=== PATIENT | male | born 1965 | race Caucasian/White ===

== ENCOUNTER 2017-05-26 17:08 | Inpatient (IN) | payer OTHER ==
[2017-05-26 19:37] LABS: ABS Basophils 0.1 10^3/ul (0-0.2); ABS Eosinophils 0 10^3/ul (0-0.6); ABS Lymphocytes 1.1 10^3/ul (1.0-4.8); ABS Monocytes 0.3 10^3/ul (0-0.8); ABS Neutrophils 3.3 10^3/ul (1.5-7.7); ABS Nucleated RBC 0 10^3/ul; Eosinophil % 0 % (0-6); Hematocrit 46 % (42-52); Hemoglobin 16.2 g/dl (14.0-18.0); Lymphocyte % 22.8 % (25-47); Mean Corpuscular HGB Conc 35 g/dl (31-36); Mean Corpuscular Hemoglobin 30 pg (27-31); Mean Corpuscular Volume 87 fL (80-94); Mean Platelet Volume 8 um3 (7.4-10.4); Nucleated Red Blood Cells % 0.1; Platelet Count 126 10^3/ul (150-450); Red Blood Count 5.36 10^6/ul (4.0-5.4); Red Cell Distribution Width 15 % (10.5-15); White Blood Count 4.7 10^3/ul (3.5-10.8)
[2017-05-26 19:51] LABS: EGFR Non-African American 88.3 (>60)
[2017-05-26 19:55] LABS: INR 0.85 (0.77-1.02)
[2017-05-27] MEDS ORDERED: NS 0.9% 1000 ML* 2,000 ML IV ONE (00:12)
[2017-05-27] MEDS ORDERED: chlordiazePOXIDE CAP* 25 MG PO ONE (00:13)
[2017-05-27] MEDS ORDERED: LORazepam INJ* 2 MG/ML 1 ML VIAL IV PUSH ONE (03:31)
[2017-05-27] MEDS ORDERED: LORazepam INJ* 2 MG/ML 1 ML VIAL ONE (03:33)
[2017-05-27] MEDS ORDERED: Docusate CAP* 100 MG PO PRN (05:07)
[2017-05-27] MEDS ORDERED: Senna TAB PO PRN (05:07)
[2017-05-27] MEDS ORDERED: Ondansetron INJ* 2 MG/ML VIAL IV PRN (05:07)
[2017-05-27] MEDS ORDERED: Thiamine IV* 100 MG/ML 2 ML VIAL IM ONE (05:09)
[2017-05-27] MEDS ORDERED: Thiamine IV* 100 MG, Folic Acid IV* 1 MG, Multiple Vitamin IV ADULT* 10 ML in NS 0.9% 1... IV ONE (05:10)
[2017-05-27] MEDS: LORazepam TAB(*) 1 MG PO SCH ×5 (06:41→20:43)
--- NOTE | 2017-05-27 06:50 | ED ---
Deondre Sam Thomas, scribed for Rony Coelho on 05/26/17 at 2241 . Substance Abuse/Use - HPI Summary HPI Summary: The patient is a 51 year old male presenting to the emergency department after he stopped drinking prior to arrival. He has been drinking excessively for the last three weeks. He typically drinks a liter of scotch every day. He last consumed alcohol today at approximately 11:30. He has a history of alcoholism. He denies chest pain and shortness of breath. - History Of Current Complaint Chief Complaint: EDDetoxRequest Stated Complaint: DETOX-ALCOHOL Time Seen by Provider: 05/26/17 22:34 Hx Obtained From: Patient Onset/Duration of Drug/ETOH Abuse: Weeks - excessive drinking last three weeks Ingestion History: Type/Name Of Drug - alcohol Overdose Characteristics: Oral Timing Of Abuse: Daily Severity Currently: Moderate Associated Signs And Symptoms: Other: - Cessation of alcohol; NEGATIVE: CP, SOB - Allergies/Home Medications Allergies/Adverse Reactions: Allergies Allergy/AdvReac Type Severity Reaction Status Date / Time No Known Allergies Allergy Verified 05/26/17 17:27 PMH/Surg Hx/FS Hx/Imm Hx Sensory History: Denies: Hx Legally Blind Psychiatric History: Reports: Hx Anxiety, Hx Depression, Hx Substance Abuse - alcohol Infectious Disease History: No Infectious Disease History: Denies: Traveled Outside the [place] in Last 30 Days - Family History Known Family History: Positive: Other - Patient denies relevant FHx - Social History Alcohol Use: Daily Alcohol Amount: 1L of scotch per day Substance Use Type: Reports: None Smoking Status (MU): Never Smoked Tobacco Review of Systems Negative: Fever Negative: Chest Pain Negative: Shortness Of Breath Positive: Other - Cessation of alcohol use All Other Systems Reviewed And Are Negative: Yes Physical Exam - Summary Physical Exam Summary: Appearance: Well appearing, no pain distress Skin: warm, dry, reflects adequate perfusion Head/face: normal Eyes: EOMI, [place] ENT: normal Neck: supple, non-tender Respiratory: CTA, breath sounds present Cardiovascular: RRR, pulses symmetrical Abdomen: non-tender, soft Bowel: present Musculoskeletal: normal, strength/ROM intact Neuro: normal, sensory motor intact, A&Ox3 Triage Information Reviewed: Yes Vital Signs On Initial Exam: Initial Vitals Temp Pulse Resp BP Pulse Ox 98.9 F 93 16 149/84 97 05/26/17 17:27 05/26/17 17:27 05/26/17 17:27 05/26/17 17:27 05/26/17 17:27 Vital Signs Reviewed: Yes Diagnostics - Vital Signs Vital Signs Temp Pulse Resp BP Pulse Ox 05/26/17 19:30 99.2 F 93 20 157/77 05/26/17 17:27 98.9 F 93 16 149/84 97 - Laboratory Lab Results: Lab Results 05/26/17 05/26/17 05/26/17 Range/Units 19:28 19:28 19:28 WBC 4.7 (3.5-10.8) 10^3/ul RBC 5.36 (4.0-5.4) 10^6/ul Hgb 16.2 (14.0-18.0) g/dl Hct 46 (42-52) % MCV 87 (80-94) fL MCH 30 (27-31) pg MCHC 35 (31-36) g/dl RDW 15 (10.5-15) % Plt Count 126 L (150-450) 10^3/ul MPV 8 (7.4-10.4) um3 Neut % (Auto) 69.5 (38-83) % Lymph % (Auto) 22.8 L (25-47) % [place] % (Auto) 6.2 (1-9) % Eos % (Auto) 0 (0-6) % Baso % (Auto) 1.5 (0-2) % Absolute Neuts (auto) 3.3 (1.5-7.7) 10^3/ul Absolute Lymphs (auto) 1.1 (1.0-4.8) 10^3/ul Absolute Monos (auto) 0.3 (0-0.8) 10^3/ul Absolute Eos (auto) 0 (0-0.6) 10^3/ul Absolute Basos (auto) 0.1 (0-0.2) 10^3/ul Absolute Nucleated RBC 0 10^3/ul Nucleated RBC % 0.1 INR (Anticoag Therapy) 0.85 (0.77-1.02) APTT 25.0 L (26.0-36.3) seconds Sodium 132 L (133-145) mmol/L Potassium 3.9 (3.5-5.0) mmol/L Chloride 90 L (101-111) mmol/L Carbon Dioxide 22 (22-32) mmol/L Anion Gap 20 H (2-11) mmol/L BUN 21 (6-24) mg/dL Creatinine 0.90 (0.67-1.17) mg/dL Est GFR ( Amer) 113.5 (>60) Est GFR (Non-Af Amer) 88.3 (>60) BUN/Creatinine Ratio 23.3 H (8-20) Glucose 125 H (70-100) mg/dL Calcium 9.3 (8.6-10.3) mg/dL Magnesium 2.2 (1.9-2.7) mg/dL Total Bilirubin 1.10 H (0.2-1.0) mg/dL AST 327 H (13-39) U/L ALT 314 H (7-52) U/L Alkaline Phosphatase 55 (34-104) U/L Total Protein 8.1 (6.4-8.9) g/dL Albumin 4.7 (3.2-5.2) g/dL Globulin 3.4 (2-4) g/dL Albumin/Globulin Ratio 1.4 (1-3) Serum Alcohol 391 H (<10) mg/dL Result Diagrams: 05/26/17 19:28 05/26/17 19:28 Lab Statement: Any lab studies that have been ordered have been reviewed, and results considered in the medical decision making process. Course/Dx - Course Assessment/Plan: The patient is a 51 year old male presenting to the emergency department after he stopped drinking prior to arrival. He typically drinks one liter of scotch every day. In the ED course the patient was given Librium, Ativan, and IV fluids. Bloodwork was obtained. The patient is diagnosed with alcohol withdrawal pending DTs and alcohol intoxication. Dr. Avery will admit the patient. 30 minutes critical care time. - Diagnoses Provider Diagnoses: Alcohol withdrawal pending DTs, Alcohol intoxication - Physician Notifications Discussed Care Of Patient With: Fina Avery Time Discussed With Above Provider: 05:33 Instructed by Provider To: Admit As Inpatient - Critical Care Time Critical Care Time: 30-74 min - 30 minutes Discharge - Discharge Plan Condition: Fair Disposition: ADMITTED TO [facility] Discharge Disposition Comment: By Dr. Avery. Referrals: Hayden Bustillos MD [Primary Care Provider] - The documentation as recorded by the Deondre jones Thomas accurately reflects the service I personally performed and the decisions made by me, Rony Coelho.
[2017-05-27] MEDS: Multivitamins/Minerals TAB PO SCH (10:11)
[2017-05-27] MEDS: Folic Acid TAB* 1 MG PO SCH (10:11)
[2017-05-27] MEDS: Thiamine TAB* 100 MG TAB PO SCH (10:12)
--- NOTE | 2017-05-27 11:34 | HP ---
CC: Dr. Hayden Bustillos HISTORY AND PHYSICAL: DATE OF ADMISSION: 05/27/17 TIME OF EVALUATION: 0500. PRIMARY CARE PHYSICIAN: Hayden Bustillos MD. CHIEF COMPLAINT: Hallucinations and withdrawal symptoms. HISTORY OF PRESENT ILLNESS: This is a 51-year-old male with a past medical history of alcohol abuse, who resumed drinking in the past few weeks, drinking up to a liter of scotch per day, and comes in because he wants to get detox. The patient has been in the emergency room for 10 hours when he started to have withdrawal symptoms and was referred to the hospitalist service for his withdrawal symptoms. The patient states that he is very jittery, he is now hallucinating seeing people on the wall. No diarrhea, no chest pain, no shortness of breath, no nausea, vomiting currently. He was vomiting earlier. He does have some epigastric pain and back pain. No fever. No URI symptoms. The patient has been drinking alcohol off and on since he was a teenager. He resumed for the past few weeks due to increase in stress and is now interested in rehab. Otherwise, remaining review of systems is negative. In the emergency room, the patient had labs. He was given 2 L of IV fluids, 1 mg of Ativan, 50 mg of Librium, and was referred to the hospitalist service. PAST MEDICAL HISTORY: History of alcohol abuse, history of rehab. MEDICATIONS: None. ALLERGIES: No known drug allergies. FAMILY HISTORY: His mother's side has several family members with alcohol abuse. SOCIAL HISTORY: The patient lives at home with his , Olga, who is his healthcare proxy and several extended family members including children and grandchildren. No history of drugs or smoking, and as mentioned, heavy alcohol use history. REVIEW OF SYSTEMS: A 14-point review of systems as mentioned in the HPI; otherwise, negative. PHYSICAL EXAMINATION GENERAL: Mildly jittery, in no acute distress, with the son-in-law at the bedside. VITAL SIGNS: Temp 99.2, pulse rate 116, respiratory rate 19, oxygen saturation 92% on room air, blood pressure 111/96. HEENT: Head normocephalic. Pupils are dilated and reactive. Conjunctivae are injected bilaterally. Oropharynx: Mucous membranes moist. NECK: Supple. No lymphadenopathy. RESPIRATORY: Diminished breath sounds. No wheezing, rhonchi, or rales. CARDIAC: Tachycardic, soft systolic murmur heard throughout. ABDOMEN: Soft, nontender, nondistended. EXTREMITIES: No clubbing, cyanosis, or edema. NEUROLOGIC: Alert and oriented x3. No focal neurologic deficits. The patient with jitteriness. DIAGNOSTIC STUDIES/LAB DATA: White count 4.7, hemoglobin 16.2, hematocrit 46, platelets 126. INR 0.85. Sodium 132, potassium 3.9, chloride 90, bicarb 22, BUN 21, creatinine 0.9, glucose 125. Total bili 1.1, AST 327, ALT 314. Serum alcohol 391. ASSESSMENT: This is a 51-year-old male with a past medical history of alcohol abuse, who presents to the emergency room with initial intoxication, now with withdrawal symptoms including hallucination, interested in rehab. 1. Alcohol withdrawal. Assessment: The patient interested in rehab. We place him on the [facility] protocol, social work consult, and give him a banana bag as well. In the setting of his elevated LFTs, we will add on a hepatitis panel and repeat his labs tomorrow if he is still here. 2. FEN. Place him on a regular, unrestricted diet. He is going to get a banana bag and I will refill that as well. 3. DVT prophylaxis. The patient scores low risk. We will encourage ambulation. 5. Code status. Full code. PATIENT TIME: Greater than 50 minutes spent doing the history and physical, more than half time spent in direct patient contact. [id number]/[facility] #: [id number] BITA
[2017-05-27] MEDS: oxyCODONE TAB* 5 MG TAB PO PRN (15:38)
[2017-05-27] MEDS: Ondansetron TAB* 4 MG PO PRN ×2 (15:38→20:43)
--- NOTE | 2017-05-27 15:47 | PN ---
Subjective Date of Service: 05/27/17 Interval History: Patient is distractable and shaky when examined. Patient complains of unsteady gait and palpitations. Patient denies hallucinations at this time. Patient complains of back pain. Patient states he has nausea without vomiting. Patient denies F/C, vomiting, diarrhea, dysuria or other pain. Patient is interested in rehab. Family History: Unchanged from Admission Social History: Unchanged from Admission Past Medical History: Unchanged from Admission Objective Active Medications: Al Hydrox/Mg Hydrox/Simethicone (Maalox Plus*) 30 ml PO Q6H PRN PRN Reason: INDIGESTION Docusate Sodium (Colace Cap*) 100 mg PO BID PRN PRN Reason: CONSTIPATION Folic Acid (Folvite Tab*) 1 mg PO DAILY [facility] Last Admin: 05/27/17 10:11 Dose: 1 mg Sodium Chloride (Ns 0.9% 1000 Ml*) 1,000 mls @ 125 mls/hr IV PER RATE [facility] Lorazepam (Ativan Tab(*)) 0 - 6 mg PO .PER [facility] PROTOCOL [facility] PRN Reason: Protocol Last Admin: 05/27/17 15:02 Dose: 2 mg Multivitamins/Minerals (Theragran/Minerals Tab*) 1 tab PO DAILY [facility] Last Admin: 05/27/17 10:11 Dose: 1 tab Ondansetron HCl (Zofran Inj*) 4 mg IV Q4H PRN PRN Reason: NAUSEA/VOMITING Last Admin: 05/27/17 06:57 Dose: 4 mg Ondansetron HCl (Zofran Tab*) 4 mg PO Q6H PRN PRN Reason: NAUSEA Last Admin: 05/27/17 15:38 Dose: 4 mg Oxycodone HCl (Roxycodone Tab*) 2.5 mg PO Q6H PRN PRN Reason: PAIN Last Admin: 05/27/17 15:38 Dose: 2.5 mg Senna (Senokot Tab*) 1 tab PO BID PRN PRN Reason: CONSTIPATION Thiamine HCl (Vitamin B-1 Tab*) 100 mg PO DAILY [facility] Last Admin: 05/27/17 10:12 Dose: 100 mg Vital Signs - 8 hr 05/27/17 05/27/17 05/27/17 08:00 08:01 08:40 Temperature 98.2 F Pulse Rate 89 Respiratory 16 16 16 Rate Blood Pressure 149/73 (mmHg) O2 Sat by Pulse 95 Oximetry 05/27/17 05/27/17 05/27/17 10:00 10:09 10:12 Temperature 98.2 F Pulse Rate 97 Respiratory 16 16 16 Rate Blood Pressure 123/71 (mmHg) O2 Sat by Pulse 92 Oximetry 05/27/17 05/27/17 05/27/17 11:30 12:05 14:00 Temperature 98.1 F Pulse Rate 89 Respiratory 16 16 16 Rate Blood Pressure 150/71 (mmHg) O2 Sat by Pulse 95 Oximetry 05/27/17 05/27/17 05/27/17 14:34 15:02 15:38 Temperature 97.8 F Pulse Rate 86 Respiratory 16 16 16 Rate Blood Pressure 147/83 (mmHg) O2 Sat by Pulse 97 Oximetry Oxygen Devices in Use Now: None Appearance: Patient is a 51yo male who is somewhat disheveled and is sitting in the chair with visible tremulousness but no other distress. Eyes: PERRLA, - - Slight scleral icterus and injection. Ears/Nose/Mouth/Throat: NL Teeth, Lips, Gums, Mucous Membranes Moist, - - Pharyngeal erythema. Neck: NL Appearance and Movements; NL JVP, Trachea Midline Respiratory: Symmetrical Chest Expansion and Respiratory Effort, Clear to Auscultation Cardiovascular: NL Sounds; No Murmurs; No JVD, No Edema, - - Tachycardic, regular. Abdominal: NL Sounds; No Tenderness; No Distention, No Hepatosplenomegaly Lymphatic: No Cervical Adenopathy Extremities: No Edema, No Clubbing, Cyanosis Skin: No Rash or Ulcers, No Nodules or Sclerosis Neurological: Alert and Oriented x 3, NL Sensation, NL Muscle Strength and Tone Result Diagrams: 05/26/17 19:28 05/26/17 19:28 Additional Lab and Data: Lab Results Assess/Plan/Problems-Billing Assessment: Patient is a 51yo male with a PMH significant only for alcohol abuse who presents while still intoxicated with hallucinations and a desire for detox. Patient is on [facility] protocol and is stable. - Patient Problems (1) Alcohol withdrawal Current Visit: No Status: Acute Priority: High Onset Date: 08/03/15 Code (s): F10.239 - ALCOHOL DEPENDENCE WITH WITHDRAWAL, UNSPECIFIED SNOMED Code(s) : 636403019 Comment: Started on [facility] protocol. Has good relief of symptoms with ativan. Confused, tachycardic, tremulous. Alcohol level elevated on admission. Likely worst withdrawal still to come. (2) Alcoholic liver damage Current Visit: No Status: Acute Code(s): K70.9 - ALCOHOLIC LIVER DISEASE, UNSPECIFIED SNOMED Code(s): 95730023 Comment: Moderate, will monitor. Will check ammonia in AM. Hepatic Steatosis on liver US 2 years ago. Will recheck ultrasound. (3) DVT prophylaxis Current Visit: Yes Status: Acute Code(s): JLB9110 - SNOMED Code(s): 427957827 Comment: Heparin SubQ. (4) Full code status Current Visit: Yes Status: Acute Code(s): Z78.9 - OTHER SPECIFIED HEALTH STATUS SNOMED Code(s): 488565601 Status and Disposition: Patient is admitted inpatient. Likely several day length of stay.
[2017-05-27] MEDS: NS 0.9% 1000 ML* 1,000 ML IV SCH (17:21)
--- NOTE | 2017-05-27 20:27 | RAD ---
INDICATION: Cirrhosis. COMPARISON: Comparison is made with a prior study from August 03, 2015. TECHNIQUE: Multiple real-time images of the right upper quadrant were obtained. FINDINGS: No gallstones are seen. There is a small amount of sludge within the gallbladder. No gallbladder wall thickening or pericholecystic fluid is present. No positive sonographic Becerra sign was present. No intra or extrahepatic ductal distention is present. The common bile duct measured 0.4 cm in diameter. The liver is normal in size and increased in echogenicity similar to the prior study suggestive of fatty infiltration. The pancreas is partially obscured by overlying bowel gas. No pancreatic ductal distention is seen. The right kidney is normal in size. No hydronephrosis is present. There are couple small cysts measuring 1.5 x 1.4 x 1.8 and 1.0 x 1.0 x 1.0 cm each. IMPRESSION: 1. SMALL AMOUNT OF SLUDGE WITHIN THE GALLBLADDER. 2. THE LIVER IS INCREASED IN ECHOGENICITY SUGGESTIVE OF FATTY INFILTRATION.
[2017-05-28] MEDS: LORazepam TAB(*) 1 MG PO SCH ×4 (00:23→20:31)
[2017-05-28] MEDS: oxyCODONE TAB* 5 MG TAB PO PRN ×2 (00:23→21:20)
[2017-05-28] MEDS: NS 0.9% 1000 ML* 1,000 ML IV SCH ×2 (00:25→08:11)
--- NOTE | 2017-05-28 08:26 | PN ---
Subjective Date of Service: 05/28/17 Interval History: Patient seen and examined at bedside. At this time, he states that he feels "calm." He currently denies fever/chills, CP, SOB. He previously endorses tremors but denies currently. Reports intermittent nausea. Yesterday, he states he was having visual hallucinations but states that has improved today. Feels Ativan is helping with his symptoms but worries how long it will last. States he spoke with the Lease Attendant tomorrow but is hopeful to continue discussion with SW prior to discharge. No other acute concerns expressed. Liver ultrasound reviewed with patient. Family History: Unchanged from Admission Social History: Unchanged from Admission Past Medical History: Unchanged from Admission Objective Active Medications: Al Hydrox/Mg Hydrox/Simethicone (Maalox Plus*) 30 ml PO Q6H PRN PRN Reason: INDIGESTION Docusate Sodium (Colace Cap*) 100 mg PO BID PRN PRN Reason: CONSTIPATION Folic Acid (Folvite Tab*) 1 mg PO DAILY [facility] Last Admin: 05/27/17 10:11 Dose: 1 mg Sodium Chloride (Ns 0.9% 1000 Ml*) 1,000 mls @ 125 mls/hr IV PER RATE [facility] Last Admin: 05/28/17 08:11 Dose: 125 mls/hr Influenza Virus Vaccine (Fluarix *Quad* *) 0.5 ml IM .ONCE ONE Stop: 05/28/17 09:01 Lorazepam (Ativan Tab(*)) 0 - 6 mg PO .PER [facility] PROTOCOL [facility] PRN Reason: Protocol Last Admin: 05/28/17 06:07 Dose: 2 mg Multivitamins/Minerals (Theragran/Minerals Tab*) 1 tab PO DAILY [facility] Last Admin: 05/27/17 10:11 Dose: 1 tab Ondansetron HCl (Zofran Inj*) 4 mg IV Q4H PRN PRN Reason: NAUSEA/VOMITING Last Admin: 05/27/17 06:57 Dose: 4 mg Ondansetron HCl (Zofran Tab*) 4 mg PO Q6H PRN PRN Reason: NAUSEA Last Admin: 05/27/17 20:43 Dose: 4 mg Oxycodone HCl (Roxycodone Tab*) 2.5 mg PO Q6H PRN PRN Reason: PAIN Last Admin: 05/28/17 00:23 Dose: 2.5 mg Pneumococcal Polyvalent Vaccine (Pneumococcal Vac 23-Polyvalent*) 0.5 ml IM .ONCE ONE Stop: 05/28/17 09:01 Senna (Senokot Tab*) 1 tab PO BID PRN PRN Reason: CONSTIPATION Thiamine HCl (Vitamin B-1 Tab*) 100 mg PO DAILY [facility] Last Admin: 05/27/17 10:12 Dose: 100 mg Vital Signs - 8 hr 05/28/17 05/28/17 05/28/17 02:02 02:28 04:39 Temperature 98.1 F Pulse Rate 57 68 Respiratory 16 16 16 Rate Blood Pressure 119/69 130/68 (mmHg) O2 Sat by Pulse 97 98 Oximetry 05/28/17 05/28/17 05/28/17 06:01 06:07 07:59 Temperature 98.1 F Pulse Rate 74 71 Respiratory 20 18 16 Rate Blood Pressure 125/73 129/73 (mmHg) O2 Sat by Pulse 99 98 Oximetry Oxygen Devices in Use Now: None Appearance: Middle aged male, lying in bed, calm, NAD Eyes: PERRLA Ears/Nose/Mouth/Throat: Clear Oropharnyx, Mucous Membranes Moist Neck: NL Appearance and Movements; NL JVP Respiratory: Symmetrical Chest Expansion and Respiratory Effort, Clear to Auscultation Cardiovascular: NL Sounds; No Murmurs; No JVD, RRR, No Edema Abdominal: NL Sounds; No Tenderness; No Distention Extremities: No Clubbing, Cyanosis Skin: No Rash or Ulcers Neurological: Alert and Oriented x 3, NL Muscle Strength and Tone, - - no resting tremors noted Lines/Tubes/Other Access: Clean, Dry and Intact Peripheral IV Nutrition: Taking PO's Result Diagrams: 05/26/17 19:28 05/28/17 06:26 Additional Lab and Data: Lab Results Assess/Plan/Problems-Billing Assessment: Patient is a 51yo male with a PMH significant only for alcohol abuse who presents while still intoxicated with hallucinations and a desire for detox. Patient is on [facility] protocol and is stable. - Patient Problems (1) Alcohol withdrawal Code(s): F10.239 - ALCOHOL DEPENDENCE WITH WITHDRAWAL, UNSPECIFIED Comment: Continue [facility] protocol. Scoring 4-12 yesterday evening and overnight. Has good relief of symptoms with lorazepam, with clearer mentation today. Alcohol level elevated on admission. (2) Alcoholic liver damage Code(s): K70.9 - ALCOHOLIC LIVER DISEASE, UNSPECIFIED Comment: Moderate, will monitor. Transaminases trending down. Hepatic steatosis seen on liver US on 05/27 and 2 years ago. Reviewed this with patient and discussed ETOH cessation and avoiding liver damaging medications (such as APAP) and substances. (3) DVT prophylaxis Comment: Heparin SubQ. (4) Full code status Code(s): Z78.9 - OTHER SPECIFIED HEALTH STATUS Status and Disposition: Patient is admitted inpatient.
[2017-05-28] MEDS ORDERED: Influenza VAC *QUAD* 2017-18* 0.5 ML SYRINGE IM ONE (09:00)
[2017-05-28] MEDS ORDERED: Pneumococcal *Vac Polyvalent 0.5 ML VIAL IM ONE (09:00)
[2017-05-28] MEDS: Folic Acid TAB* 1 MG PO SCH (10:12)
[2017-05-28] MEDS: Multivitamins/Minerals TAB PO SCH (10:12)
[2017-05-28] MEDS: Thiamine TAB* 100 MG TAB PO SCH (10:12)
[2017-05-28] MEDS: Al Hydrox/Mg Hydrox/Simet LIQ* 30 ML UDC PO PRN ×2 (12:44→21:17)
[2017-05-28] MEDS: Ondansetron TAB* 4 MG PO PRN ×2 (12:45→18:06)
[2017-05-28] MEDS ORDERED: Potassium Chlor TAB* 20 MEQ TAB.ER PO ONE (17:08)
[2017-05-28] MEDS: Potassium Chlor TAB* 20 MEQ TAB.ER PO SCH (20:31)
[2017-05-29] MEDS: LORazepam TAB(*) 1 MG PO SCH (00:12)
[2017-05-29] MEDS: Multivitamins/Minerals TAB PO SCH (09:23)
[2017-05-29] MEDS: Folic Acid TAB* 1 MG PO SCH (09:23)
[2017-05-29] MEDS: Thiamine TAB* 100 MG TAB PO SCH (09:23)
[2017-05-29] MEDS: Potassium Chlor TAB* 20 MEQ TAB.ER PO SCH ×2 (09:23→20:07)
[2017-05-29 09:32] LABS: EGFR Non-African American 77.3 (>60)
--- NOTE | 2017-05-29 09:59 | PN ---
Subjective Date of Service: 05/29/17 Interval History: Patient seen and examined at bedside. Required lorazepam overnight. Reports still feeling anxious and occasionally nauseous ("like motion sickness in the car") this morning. Denies CP, SOB, visual hallucinations, tremors. Discussed adding Librium, which he states didn't work in the ED. Discussed trying that as a baseline medication and using lorazepam for breakthrough in preparation for discharge, for which he agrees. No other acute concerns. Family History: Unchanged from Admission Social History: Unchanged from Admission Past Medical History: Unchanged from Admission Objective Active Medications: Al Hydrox/Mg Hydrox/Simethicone (Maalox Plus*) 30 ml PO Q6H PRN PRN Reason: INDIGESTION Last Admin: 05/28/17 21:17 Dose: 30 ml Docusate Sodium (Colace Cap*) 100 mg PO BID PRN PRN Reason: CONSTIPATION Folic Acid (Folvite Tab*) 1 mg PO DAILY [facility] Last Admin: 05/29/17 09:23 Dose: 1 mg Lorazepam (Ativan Tab(*)) 0 - 6 mg PO .PER [facility] PROTOCOL [facility] PRN Reason: Protocol Last Admin: 05/29/17 00:12 Dose: 2 mg Multivitamins/Minerals (Theragran/Minerals Tab*) 1 tab PO DAILY [facility] Last Admin: 05/29/17 09:23 Dose: 1 tab Ondansetron HCl (Zofran Inj*) 4 mg IV Q4H PRN PRN Reason: NAUSEA/VOMITING Last Admin: 05/27/17 06:57 Dose: 4 mg Ondansetron HCl (Zofran Tab*) 4 mg PO Q6H PRN PRN Reason: NAUSEA Last Admin: 05/28/17 18:06 Dose: 4 mg Oxycodone HCl (Roxycodone Tab*) 2.5 mg PO Q6H PRN PRN Reason: PAIN Last Admin: 05/28/17 21:20 Dose: 2.5 mg Potassium Chloride (Klor Con Er Tab*) 20 meq PO BID [facility] Last Admin: 05/29/17 09:23 Dose: 20 meq Senna (Senokot Tab*) 1 tab PO BID PRN PRN Reason: CONSTIPATION Thiamine HCl (Vitamin B-1 Tab*) 100 mg PO DAILY [facility] Last Admin: 05/29/17 09:23 Dose: 100 mg Vital Signs - 8 hr 05/29/17 05/29/17 05/29/17 02:55 03:46 05:45 Temperature 98.2 F Pulse Rate 66 58 Respiratory 16 16 16 Rate Blood Pressure 139/64 103/62 (mmHg) O2 Sat by Pulse 98 98 Oximetry 05/29/17 07:55 Temperature 97.7 F Pulse Rate 79 Respiratory Rate Blood Pressure 111/69 (mmHg) O2 Sat by Pulse 98 Oximetry Oxygen Devices in Use Now: None Appearance: Male patient, lying in bed, NAD Eyes: No Scleral Icterus Ears/Nose/Mouth/Throat: Clear Oropharnyx, Mucous Membranes Moist Neck: NL Appearance and Movements; NL JVP Respiratory: Symmetrical Chest Expansion and Respiratory Effort, Clear to Auscultation Cardiovascular: NL Sounds; No Murmurs; No JVD, RRR Abdominal: NL Sounds; No Tenderness; No Distention Extremities: No Edema, No Clubbing, Cyanosis Neurological: Alert and Oriented x 3, NL Muscle Strength and Tone Lines/Tubes/Other Access: Clean, Dry and Intact Peripheral IV Result Diagrams: 05/26/17 19:28 05/29/17 08:53 Additional Lab and Data: Lab Results Assess/Plan/Problems-Billing Assessment: Patient is a 51yo male with a PMH significant only for alcohol abuse who presents while still intoxicated with hallucinations and a desire for detox. Patient is on [facility] protocol and is stable. - Patient Problems (1) Alcohol withdrawal Code(s): F10.239 - ALCOHOL DEPENDENCE WITH WITHDRAWAL, UNSPECIFIED Comment: Continue WAM protocol. Scoring 2 and 3 on WAM, requiring less lorazepam. Suspect some baseline anxiety - will trial chlordiazepoxide ATC with lorazepam for breakthrough symptoms. Plan to taper back lorazepam in anticipation of discharge. (2) Alcoholic liver damage Code(s): K70.9 - ALCOHOLIC LIVER DISEASE, UNSPECIFIED Comment: Moderate, will monitor. Transaminases trending down. Hepatic steatosis seen on liver US on 05/27 and 2 years ago. Reviewed this with patient and discussed ETOH cessation and avoiding liver damaging medications (such as APAP) and substances. (3) DVT prophylaxis Comment: Heparin SubQ. (4) Full code status Code(s): Z78.9 - OTHER SPECIFIED HEALTH STATUS Status and Disposition: Patient is admitted inpatient. Anticipate possible d/c tomorrow.
[2017-05-29] MEDS: chlordiazePOXIDE CAP* 25 MG PO SCH ×3 (10:21→20:07)
[2017-05-30] MEDS: chlordiazePOXIDE CAP* 25 MG PO SCH ×2 (09:50→13:22)
[2017-05-30] MEDS: Thiamine TAB* 100 MG TAB PO SCH (09:51)
[2017-05-30] MEDS: Folic Acid TAB* 1 MG PO SCH (09:51)
[2017-05-30] MEDS: Multivitamins/Minerals TAB PO SCH (09:51)
[2017-05-30] MEDS: Potassium Chlor TAB* 20 MEQ TAB.ER PO SCH (09:51)
[2017-05-30 12:15] VITALS: BP 140/81
--- NOTE | 2017-05-30 20:28 | PN ---
Subjective Date of Service: 05/30/17 Interval History: C/o of mild anxiety, Denies chest pain or shortness of breath, Denies abd pain , denies N/V/D Family History: Unchanged from Admission Social History: Unchanged from Admission Past Medical History: Unchanged from Admission Objective Vital Signs - 8 hr 05/30/17 05/30/17 13:02 13:22 Respiratory 14 14 Rate Oxygen Devices in Use Now: None Appearance: appears calm resting in bed Eyes: No Scleral Icterus Ears/Nose/Mouth/Throat: Clear Oropharnyx, Mucous Membranes Moist Neck: NL Appearance and Movements; NL JVP, Trachea Midline Respiratory: Symmetrical Chest Expansion and Respiratory Effort, Clear to Auscultation Cardiovascular: NL Sounds; No Murmurs; No JVD, No Edema Abdominal: NL Sounds; No Tenderness; No Distention Extremities: No Edema, No Clubbing, Cyanosis Skin: No Rash or Ulcers Neurological: Alert and Oriented x 3, NL Gait Nutrition: Taking PO's Result Diagrams: 05/26/17 19:28 05/29/17 08:53 Additional Lab and Data: Lab Results Assess/Plan/Problems-Billing Assessment: Patient is a 51yo male with a PMH significant only for alcohol abuse who presents while still intoxicated with hallucinations and a desire for detox. Patient is on WAM protocol and is stable. - Patient Problems (1) Anxiety Status: Acute Code(s): F41.9 - ANXIETY DISORDER, UNSPECIFIED SNOMED Code(s) : 95522364 Comment: will send home with Ativan 0.5 mg po every 6 hours as needed for anxiety, MDD 4 will dispense #20 I stop checked and no previous narcotics ref#[id number] (2) Alcohol withdrawal Status: Acute Priority: High Onset Date: 08/03/15 Code(s): F10.239 - ALCOHOL DEPENDENCE WITH WITHDRAWAL, UNSPECIFIED SNOMED Code(s): 874050866 Comment: Continue WAM protocol. Scoring 1 and 3 on WAM, requiring less lorazepam. Suspect some baseline anxiety - will trial chlordiazepoxide ATC - patient denied improvement with librium lorazepam for breakthrough symptoms. will send home with a five day supply (3) DVT prophylaxis Status: Acute Code(s): [id number] - SNOMED Code(s): 633574484 Comment: ambulation (4) Full code status Status: Acute Code(s): Z78.9 - OTHER SPECIFIED HEALTH STATUS SNOMED Code(s) : 272244718 Status and Disposition: Patient is admitted inpatient. d/c today.
--- NOTE | 2017-05-31 20:30 | DS ---
AMENDED REPORT NOW INCLUDES COSIGNER DESIGNATION - ESIGNED BEFORE ADJUSTMENT DISCHARGE SUMMARY: DATE OF ADMISSION: 05/27/17 DATE OF DISCHARGE: 05/30/17 ATTENDING PHYSICIAN: Liya Hoffman MD * (dictated by Yara Varela NP). PRIMARY CARE PROVIDER: Hayden Bustillos MD PRIMARY DIAGNOSES: 1. Hallucinations. 2. Alcohol withdrawal. SECONDARY DIAGNOSIS: Significant for alcohol abuse in the past with a history of rehab. STUDIES DONE WHILE IN THE HOSPITAL: He had a liver ultrasound on 05/27/17. Radiologist's impression: 1. Small amount of sludge within the gallbladder. 2. The liver is increased in echogenicity suggestive of fatty infiltration. DISCHARGE MEDICATIONS: 1. Folic acid 1 mg p.o. daily. 2. Lorazepam 0.5 mg p.o. q.6 hours, maximum daily dose of 4, dispense #20. I- STOP reference number is [id number]. 3. Multivitamin with minerals 1 tab p.o. daily. 4. Zofran 4 mg p.o. q.6 hours as needed for nausea. 5. Potassium chloride 20 mEq p.o. daily. 6. Thiamine 100 mg p.o. daily. Continued home meds was none. HISTORY OF PRESENT ILLNESS AND HOSPITAL COURSE: Mr. Degroot is a 51-year-old male with past medical history of alcohol abuse, who resumed drinking in the past few weeks, drinking up to 1 L of scotch per day and comes in because he wants to get detox. The patient states that he was in the emergency room for 10 hours when he started having some withdrawal symptoms and was referred to the hospitalist service. The patient states that he is very jittery and is now hallucinating. He is seeing people on the wall. Denies diarrhea, chest pain, shortness of breath, nausea, vomiting. The patient reports that he has been drinking alcohol on and off since he was a teenager. He resumed drinking a few weeks ago due to increased stress and is now interested in going to rehab. While in the emergency room, he was given 2 L of IV fluids, 1 mg of Ativan, 50 mg of Librium, and he was admitted to the hospital. During his hospitalization , he was placed on WAM initially on 05/28/17, scoring between 2 and 7; between 05/29/17 and 05/30/17, he was scoring between 1 and 4 and not requiring any intervention with Ativan. The patient states that he is feeling better. He has no complaints. He does state that he does have some underlying anxiety for which he needs to seek outpatient treatment and management of his underlying anxiety. Mr. Degroot is stable for discharge home today. He has a plan in place for supportive care to assist him with his recovery and will use the family support. Vital signs are as follows: Temp was 98.3, heart rate was 72, respirations 16, O2 saturation was 98%, blood pressure 140/81. DISCHARGE PLAN: Mr. Degroot will be discharged back home. ACTIVITY: As tolerated. DIET: He should resume a regular diet. In regards to his anxiety, I will give him a 5-days worth of Ativan 0.5 mg. He can take 1 tablet every 6 hours as needed for anxiety. I recommended that he follow up with his primary care provider in 4 to 7 days to address long-term management of his anxiety symptoms. I have encouraged Mr. Degroot not to partake in any alcohol consumption and to seek help prior to drinking. Mr. Degroot says that he has a stable plan in place to help him in his recovery process. FOLLOWUP: The patient should follow up with his primary care provider in 4 to 7 days. The patient was asked to return to the emergency room for any increased shortness of breath, chest pain, unrelieved anxiety or any worsening in his symptoms. This is a summary of his hospitalization. For further details, please see the entire medical record. TIME SPENT: Time spent on this discharge was approximately 45 minutes, greater than half that time was spent with the patient discussing discharge plans and instructions. CONDITION ON DISCHARGE: Stable. YARA VARELA, BESS [id number]/[facility] #: [id number] BITA
== END 2017-05-30 16:15 | disposition home or self-care (01) | DRG 897 ==
LOC: ED 17:08 → MED 05-27 05:07 → OBSVTOIN 05-28 04:30
PROVIDERS: ADMIT Pediatrics; ATTEND Internal Medicine
DX: F10.239 Alcohol dependence with withdrawal, unspecified (principal); F10.229 Alcohol dependence with intoxication, unspecified; K70.9 Alcoholic liver disease, unspecified; F41.9 Anxiety disorder, unspecified; F32.9 Major depressive disorder, single episode, unspecified; Y90.8 Blood alcohol level of 240 mg/100 ml or more; K76.0 Fatty (change of) liver, not elsewhere classified; R44.1 Visual hallucinations; Z81.1 Family history of alcohol abuse and dependence
CPT/HCPCS: 36415; 76705; 80053; 80074; 80076; 80320; 83735; 85025; 85610; 85730; 90686; 90732; 96374; 99285; A9270-GY; G0378; G0480; J2060; J2405; J3411

== ENCOUNTER 2018-10-26 09:50 | Inpatient (IN) | payer OTHER ==
[2018-10-26] MEDS ORDERED: NS 0.9% 1000 ML** 1,000 ML IV ONE ×2 (09:54→14:33)
--- NOTE | 2018-10-26 09:54 | ED ---
Neurological HPI - HPI Summary HPI Summary: LEVEL 5 CAVEAT: HPI LIMITED DUE TO PATIENT CONDITION, UNRESPONSIVE A 53 y/o M brought in by ambulance presents to ED s/p 2 seizures shortly WILL CALL ORDER CLERK. He has no PMHx: sz. Patient is an alcoholic and recently stopped drinking yesterday. Per EMS: Family says patient was at baseline this AM, but then he screamed and stopped responding; when EMS arrived on scene, patient was alert but not oriented; patient had a witnessed full grand mal seizure en route that lasted about one minute and was given Versed 5mg IV at 0942. Pt went for alcohol rehab in another state several years ago. He last drank, prior to recently, approximately 1.5 years ago. states pt has never had seizures as part of alcohol withdrawal in the past. ED provider met EMS and patient in room. Vitals at bedside: HR: 91 bpm, BP: 153/82, 92% O2 sat. - History of Current Complaint Stated Complaint: "SEIZURE PER JUANA" Hx Obtained From: Family/Bill Peddler - (after initial presentation), EMS Hx From Patient Unobtainable Due To: Other - unresponsive, post ictal Onset/Duration: Sudden Onset, Still Present Timing: Constant Seizure Severity: Self Limited Number of Seizures: 2 Seizure Character: Total-Clonic Aggravating: Alcohol/Drug Withdrawal Alleviating: Medication - versed 5mg IM by EMS Associated Signs and Symptoms: Positive: Emotional Distress - financial problems , recent move Related Hx: Alcohol/Drug Abuse - alcohol - Allergy/Home Medications Allergies/Adverse Reactions: Allergies Allergy/AdvReac Type Severity Reaction Status Date / Time No Known Allergies Allergy Verified 10/26/18 10:29 PMH/Surg Hx/FS Hx/Imm Hx Previously Healthy: Yes Cardiovascular History: Reports: Other Cardiovascular Problems/Disorders - heart murmur Denies: Hx Congestive Heart Failure, Hx Hypertension Respiratory History: Denies: Hx Chronic Obstructive Pulmonary Disease (COPD) Psychiatric History: Reports: Hx Anxiety, Hx Substance Abuse - alcohol, rehab x 1 - Surgical History Surgical History: None Infectious Disease History: No - Family History Known Family History: Positive: Other Family History: ETOH - Social History Occupation: Unemployed - has a PhD from [place], 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 Lives: With Family Alcohol Amount: Alcoholic Hx Substance Use: No Hx Tobacco Use: Yes Smoking Status (MU): Former Smoker Review of Systems - ROS Summary Review of Systems Summary: LEVEL 5 CAVEAT: ROS LIMITED DUE TO PATIENT CONDITION, UNRESPONSIVE Constitutional: Negative Eyes: Negative ENT: Negative Cardiovascular: Negative Respiratory: Negative Gastrointestinal: Negative Musculoskeletal: Negative Skin: Negative Neurological: Other - pos: seizure x 2 Psychological: Normal All Other Systems Reviewed And Are Negative: No Physical Exam - Summary Physical Exam Summary: Appearance: ill-appearing, no pain distress, well-nourished, rouses to stimuli, eyes closed Skin: Warm, dry, Abrasions and bruises to bilat knees and bilat ventral surfaces of UE. Head: Normal Head/Face inspection, atraumatic Eyes: Conjunctiva clear, pupils midpoint, EOMI, no nystagmus ENT: Normal inspection Neck: Supple, no nodes, no JVD Respiratory: Lungs clear, normal breath sounds, no respiratory distress. Mouth breathing and moaning, O2 sat dropped to 85% momentarily, but responded to stimulation. Cardio: RRR, pulses normal, brisk capillary refill, loud systolic murmur 2/6 Abdomen: Soft, nontender Bowel sounds: Present Musculoskeletal: Strength Intact/ROM intact, no calf tenderness, no edema. Psychological: Normal Neuro: Muscle tone normal, no focal deficit. Opens eyes to stimulation and voice , moves all extremities, facial symmetry, follows commands Triage Information Reviewed: Yes Vital Signs Reviewed: Yes - [place] Coma Scale Best Eye Response: 2 - To Pain Best Motor Response: 5 - Purposeful Movement Best Verbal Response: 2 - Incomprehensible Words Coma Scale Total: 9 Diagnostics - Laboratory Result Diagrams: 10/26/18 10:24 10/26/18 14:07 Lab Statement: Any lab studies that have been ordered have been reviewed, and results considered in the medical decision making process. - Radiology CXR Radiology Interpretation Completed By: Radiologist Summary of Radiographic Findings: IMPRESSION: NO ACTIVE CARDIOPULMONARY DISEASE IS NOTED. ED provider has reviewed this report. - CT Brain CT CT Interpretation Completed By: Radiologist Summary of CT Findings: IMPRESSION: No intracranial mass or hemorrhage. Limited study due to motion artifact. ED provider has reviewed this report. - EKG 0958 Cardiac Rate: NL - 87 bpm EKG Rhythm: Sinus Rhythm ST Segment: Non-Specific Ectopy: None Summary of EKG Findings: Sinus rhythm, LVH, nml ALBERT CT, nml QTc, and nml axis. No acute changes. Re-Evaluation - Re-Evaluation 1 Re-Evaluation Time: 10:08 Change: Unchanged Comment: ED provider at bedside, called in by nurse. Patient twitching, started to open his eyes. , Olga, now at bedside: Patient has been under stress, they've recently moved. He is an alcoholic and has had intermittent episodes of starting and stopping. His last binge was approx 1.5 years ago, after the of [id number]. He began drinking again a few weeks ago. Pt told her, he wanted to drink until he . They removed all the ETOH from the house yesterday, and to her knowledge, patient hasnt drunk for approx. 24 hours. This AM, Olga was trying to get him to the hospital for detox. He was pale, shivering, tremulous, diaphoretic. He has had similar sx previously when experiencing withdrawal. She says he screamed, turned red, and clenched his body , foamed at the mouth. Shes unsure if his eyes were closed. She thinks his sz lasted 30 secs. Afterwards, patient was incoherent, but she felt he recognized her about 10 mins post-sz. His PCP retired and sees [employer] OFF[employer]ER, is unsure who that is. Patient is healthy otherwise, no prior surgeries. Medication for anxiety. Patient is R-hand dominant. 2 Re-Evaluation Time: 12:09 Change: Improved Comment: Patient is alert and oriented, states feeling better. He is diaphoretic at bedside. Tremulous when moving, no resting tremor. Patient denies SI at bedside. He states he did tell his he wanted to drink himself to but that he didn't mean it. Vitals at bedside: HR: 106 bpm, BP: 134/88 , 92% O2 sat. Course/Dx - Course Course Of Treatment: A 53 y/o M presents to ED s/p sz 1x at home this AM and 1x en route. Patient given Versed 5mg IM by EMS. Patient is somnolent and snoring upon arrival. Per , patient is an alcoholic, has not drunk in 24 hours, and has no PMHx: seizures. He told his he wanted to drink himself to . Allergies noted. Pt medications reviewed this visit. Nurses' notes reviewed. Critical lab values: troponin: 0.09, lactic acid: 2.5. Serum ETOH is less than 10. anion gap is 26, CK is 11,160. AST, ALT and T Bili are all elevated. EKG reveals NSR at 87 bpm and LVH, nml ALBERT CT, nml QTc, and nml axis. No acute changes. CXR shows no active cardiopulmonary dz. Brain CT shows "No intracranial mass or hemorrhage. Limited study due to motion artifact.". Consulted with Dr. Gorman, hospitalist, who will admit patient. DX: alcohol withdrawal seizures. With elevated anion gap and elevated glucose, will obtain ABG, and will treat as DKA until additional information is obtained, although and pt state he is not diabetic. - Differential Dx Differential Diagnoses Neuro: Positive: Alcohol Abuse, Metabolic Abnormality, Overdose, Other - alcohol withdrawal, DKA - Diagnoses Provider Diagnoses: Alcohol withdrawal seizure, DKA (diabetic ketoacidoses), Hyponatremia, Abnormal liver function tests, Elevated troponin, Elevated lactic acid level, Rhabdomyolysis - Physician Notifications Discussed Care Of Patient With: Cooper Gorman - HOSPITALIST Time Discussed With Above Provider: 12:30 Instructed by Provider To: Admit As Inpatient - Critical Care Time Critical Care Time: 30-74 min - 30 mins Discharge - Sign-Out/Discharge Documenting (check all that apply): Patient Departure - ADMIT Patient Received Moderate/Deep Sedation with Procedure: No - Discharge Plan Condition: Stable Disposition: ADMITTED TO [facility] - Billing Disposition and Condition Condition: STABLE Disposition: Admitted to [facility] - Attestation Statements Document Initiated by Scribe: Yes Documenting Scribe: Chely Trilpett Provider For Whom Tashia is Documenting (Include Credential): Dr. Claire Hua MD Scribe Attestation: Chely Sam, scribed for Dr. Claire Hua MD on 10/27/18 at 0236. Scribe Documentation Reviewed: Yes Provider Attestation: The documentation as recorded by the Chely jones accurately reflects the service I personally performed and the decisions made by me, Dr. Claire Hua MD Status of Scribe Document: Viewed
[2018-10-26] MEDS ORDERED: LORazepam INJ* 2 MG/ML 1 ML VIAL IV PUSH ONE ×3 (10:10→13:03)
[2018-10-26 10:52] LABS: Hematocrit 45 % (42-52); Hemoglobin 15.2 g/dL (14.0-18.0); Mean Corpuscular HGB Conc 34 g/dL (31-36); Mean Corpuscular Hemoglobin 30 pg (27-31); Mean Corpuscular Volume 88 fL (80-94); Red Blood Count 5.12 10^6 /uL (4.18-5.48); Red Cell Distribution Width 14 % (10-15); White Blood Count 14.1 10^3/uL (3.5-10.8)
[2018-10-26 11:01] LABS: Activated Partial Thrombo Time 27.2 seconds (26.0-38.0); INR 0.97 (0.82-1.09)
[2018-10-26 11:13] LABS: ALT 207 U/L (7-52); AST 452 U/L (13-39); Albumin 4.1 g/dL (3.2-5.2); Albumin/Globulin Ratio 1.4 (1-3); Alkaline Phosphatase 57 U/L (34-104); Anion Gap 26 mmol/L (2-11); Blood Urea Nitrogen 19 mg/dL (6-24); CO2 Carbon Dioxide 16 mmol/L (22-32); Calcium 9.2 mg/dL (8.6-10.3); Chloride 83 mmol/L (101-111); EGFR African American 99.6 (>60); EGFR Non-African American 82.3 (>60); Globulin 2.9 g/dL (2-4); Glucose 193 mg/dL (70-100); Magnesium 2.3 mg/dL (1.9-2.7); Potassium 3.3 mmol/L (3.5-5.0); Sodium 125 mmol/L (135-145)
[2018-10-26 11:16] LABS: ABS Lymphocytes 0.3 10^3/ul (1.0-4.8); ABS Monocytes 0.9 10^3/ul (0-0.8); ABS Neutrophils 12.9 10^3/ul (1.5-7.7); Lymphocyte % 1.9 %; Mean Platelet Volume 8.7 fL (7.4-10.4); Platelet Count 94 10^3/uL (150-450)
[2018-10-26 11:20] LABS: Troponin I 0.09 ng/mL (<0.04)
[2018-10-26 11:25] LABS: Alcohol < 10 mg/dL (<10)
[2018-10-26] MEDS ORDERED: Lorazepam PYXIS KEY PRN (12:18)
[2018-10-26 12:19] LABS: Creatine Kinase 11160 U/L (10-223)
[2018-10-26] MEDS ORDERED: Thiamine IV* 100 MG/ML 2 ML VIAL IM ONE (12:23)
[2018-10-26] MEDS ORDERED: Insulin REGULAR(*) 1 UNITS UNIT IV PUSH ONE (12:35)
[2018-10-26] MEDS ORDERED: LORazepam INJ* 2 MG/ML 1 ML VIAL ONE (12:53)
[2018-10-26 12:57] LABS: Uric Acid 13.6 mg/dL (4.4-7.6)
[2018-10-26 13:00] LABS: Amylase 124 U/L (29-103)
[2018-10-26] MEDS ORDERED: LORazepam TAB(*) 1 MG PO SCH (13:00)
[2018-10-26 13:05] LABS: Urine Appearance Cloudy; Urine Bacteria Absent (Absent); Urine Bilirubin Negative (Negative); Urine Blood 3+ (Negative); Urine Color Yellow; Urine Glucose Negative (Negative); Urine Ketones Trace (Negative); Urine Nitrite Negative (Negative); Urine Protein 1+(30 mg/dL) (Negative); Urine Red Blood Cell 1+(3-5/hpf) (Absent); Urine Specific Gravity 1.011 (1.010-1.030); Urine Urobilinogen Negative (Negative); Urine White Blood Cell Trace(0-5/hpf) (Absent)
[2018-10-26 13:13] LABS: Urine Creatinine Concentration 42.81 mg/dL
[2018-10-26 13:19] LABS: Urine Benzodiazepine Screen Presumptive Positive (None Detect); Urine Opiates Screen None Detected (None Detect)
[2018-10-26] MEDS ORDERED: NS 0.9% 1000 ML** 1,000 ML IV SCH (14:00)
[2018-10-26 14:40] LABS: Anion Gap 11 mmol/L (2-11); BUN/Creatinine Ratio 19.1 (8-20); Blood Urea Nitrogen 17 mg/dL (6-24); CO2 Carbon Dioxide 25 mmol/L (22-32); Calcium 8.8 mg/dL (8.6-10.3); Chloride 91 mmol/L (101-111); EGFR African American 107.4 (>60); EGFR Non-African American 88.7 (>60); Glucose 136 mg/dL (70-100); Potassium 3.4 mmol/L (3.5-5.0); Sodium 127 mmol/L (135-145)
[2018-10-26 15:00] LABS: Troponin I 0.16 ng/mL (<0.04)
[2018-10-26 15:01] LABS: Myoglobin 1444.2 ng/mL (17.4-105.7)
[2018-10-26 15:31] LABS: CKMB ng/mL 207.3 ng/mL (0.6-6.3)
[2018-10-26] MEDS: NS 0.9% 1000 ML** 1,000 ML IV SCH ×2 (15:41→21:53)
[2018-10-26 17:32] LABS: Troponin I 0.16 ng/mL (<0.04)
[2018-10-26 17:45] LABS: Creatine Kinase 11407 U/L (10-223)
[2018-10-26] MEDS: Acetaminophen TAB* 325 MG PO PRN (19:28)
[2018-10-26] MEDS: LORazepam INJ* 2 MG/ML 1 ML VIAL IV PUSH SCH ×3 (19:43→23:55)
[2018-10-26] MEDS ORDERED: Potassium Chloride* LIQUID 20 MEQ/15 ML UDC PO ONE (21:17)
[2018-10-26 22:55] LABS: Troponin I 0.14 ng/mL (<0.04)
[2018-10-26] MEDS: LORazepam TAB(*) 1 MG PO PRN (23:02)
[2018-10-27] MEDS ORDERED: Dexmedetomidine* 1,000 MCG in NS 0.9% 250 ML* 240 ML IV ONE (01:21)
--- NOTE | 2018-10-27 02:04 | HP ---
CC: Unknown primary care provider... HISTORY AND PHYSICAL: DATE OF ADMISSION: 10/26/18 PROVIDER: Georgie Varela NP PRIMARY CARE PROVIDER: Unknown. ATTENDING PHYSICIAN WHILE IN THE HOSPITAL: Dr. Cooper Gorman * (dictated by Georgie Varela NP). CHIEF COMPLAINT: 1. Alcohol withdrawal. 2. Seizure. HISTORY OF PRESENT ILLNESS: Mr. Degroot is a 53-year-old male with a past medical history significant for anxiety, depression, history of alcohol abuse, and alcohol withdrawal, who presented to the emergency room with a seizure after abruptly stopping drinking. History was obtained from his who is present in the room of the patient as the patient is drowsy after receiving Ativan. Per the , the patient has been drinking consistently for the past 2 weeks straight. She reports that he has been drinking a lot of scotch. When the patient was questioned, he reports that he has been drinking 1 L of scotch daily for the past 2 weeks. The patient has had recent stressors in his life. He had a recent move, he is starting a new business and financial concerns, recent move into a new house. He has not been working in approximately 3 weeks. Due to a combination of all these stressors and his daughter and family moving into the new house with them, the patient felt overwhelmed with financial burden and with the move, so he started drinking approximately 2 weeks ago. The patient does have a history of alcohol abuse and alcohol withdrawal. reports that he has not drank since December 2017 and prior to that he had an episode of binge drinking in April 2017. Prior to that, binge was in 2015. The patient and his reports that today the patient had a seizure lasting approximately 30 seconds where the patient was slowly unresponsive and shaking, so she called the EMS. The patient again had another seizure and transported to the emergency room and was given Versed by EMS. reports that he stopped drinking at approximately noon yesterday. She reports that all the alcohol was removed from the house. She does report that the patient was vomiting yesterday. She reports that he stopped eating approximately 2 days ago. Yesterday, the patient told his "he did not want to live anymore". When the patient is questioned today, he denies any suicidal or homicidal ideations. The does report the patient has had chills, sweating, and hallucinations yesterday. Due to his alcohol withdrawal and seizures, we were asked to see and evaluate him for admission. PAST MEDICAL HISTORY: Significant for: 1. Anxiety. 2. Depression. 3. Alcohol abuse. 4. History of alcohol withdrawal. PAST SURGICAL HISTORY: None. HOME MEDICATIONS: An anxiety med. The patient's reports the patient is not taking it. ALLERGIES: No known drug allergies. FAMILY HISTORY: No reported history of coronary artery disease or diabetes. Mother with a history of breast cancer. SOCIAL HISTORY: The patient quit smoking approximately 25 years ago. Prior to that, he smoked on and off for approximately 10 years. He does have a history of alcohol abuse. He has been binge drinking for the past 2 weeks, 1 L of scotch daily. No illicit drug use. 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 He is . He lives with his . Surrogate decision maker in the event he is unable to make his own decision is his . He is a full code. REVIEW OF SYSTEMS: The patient himself denies any fevers, chest pain, or edema. He denies any cough, hemoptysis, or shortness of breath. He does report vomiting. No reports of abdominal pain. He denies any difficulty with urination. The rest of his review of systems difficult to obtain due to his level of drowsiness. does report that he has had increased anxiety and depression. PHYSICAL EXAMINATION GENERAL: At this time, Mr. Degroot is drowsy, resting on the stretcher in the emergency room. VITAL SIGNS: Blood pressure is 156/96, heart rate 104, respirations are 18, O2 saturation 92%, temperature was 99.0. HEENT: Head is atraumatic, normocephalic. Eyes: EOMs are intact. Sclerae anicteric and not pale. Oral mucosa appeared to be moist. NECK: Supple. LUNGS: Clear to auscultation bilaterally. No wheezes, rales, or rhonchi. CARDIAC: S1, S2. Regular rate and rhythm. No murmurs, rubs, or gallops. ABDOMEN: Soft and nontender. Bowel sounds are present x4. He denies any tenderness with palpation. He is able to move all 4 extremities. There is no clubbing or cyanosis. SKIN: He does have multiple ecchymotic areas noted to bilateral lower extremities and bilateral arms with abrasions noted to bilateral lower extremities. NEUROLOGIC: He is drowsy. He does open his eyes and answered some questions to verbal. He has received Ativan in the emergency room due to his tremors and alcohol withdrawal as well as Versed for his seizures. LABORATORY DATA AND DIAGNOSTIC STUDIES: WBCs are 14.1, RBCs are 5.12, hemoglobin 15.2, hematocrit 45, platelet was count 94. INR was 0.97. The pH was 7.51, pCO2 was 30, pO2 was 77, HCO3 was 26.2. Initial BMP; sodium 125, potassium 3.3, chloride 83, carbon dioxide was 16, anion gap was 26. Glucose was 193. Lactic acid was 15.8. Uric acid was 13.6. Magnesium was 2.3. Total bilirubin 1.70, ASTs were 452, ALTs were 207. Total CK was 11,160. Initial troponin was 0.09. Amylase was 124, lipase was 172. Repeat sodium was 127, potassium was 3.4, chloride was 91. Glucose was 136. Carbon dioxide was 25. Anion gap was 11. BUN was 17, creatinine 0.89. CK-MB was 207.3, myoglobin was 1444.2. Repeat troponin at 1407 was 0.16. Urine was within normal limits with the exception of urine protein was 1+, ketones were trace, blood was 3+, urine rbc's were 1+, bacteria was absent. Benzodiazepine was positive in the urine test. Serum alcohol was less than 10. He had a chest x-ray, radiologist's impression: No active cardiopulmonary disease. He had an electrocardiogram which showed sinus rhythm at a rate of 78. He does have mild ST-depression in lead I. He has ST depressions and T-wave inversions in V4, 5, and V6, V3 which appeared to be consistent with a prior EKG from 2016 where he also had [address]-depressions and T-wave inversions in V3, 4, 5, and 6. He had a CT of the brain, radiologist's impression: No intracranial mass or hemorrhage, limited due to motion artifact. ASSESSMENT AND PLAN: Mr. Degroot is a 53-year-old male with past medical history significant for alcohol abuse, alcohol withdrawal, anxiety, depression, who presented to the emergency room with alcohol withdrawal seizures. He will be admitted to ICU with: 1. Seizure. The patient did have 2 seizures, witnessed seizures today, likely from alcohol withdrawal as the patient abruptly stopped drinking alcohol approximately 24 hours ago. He will be placed on WAM protocol with Ativan as needed for withdrawal symptoms. He will have seizure precautions. We will monitor him on telemetry overnight. 2. Elevated liver functions. This is likely related to alcoholic hepatitis. We will continue to monitor his liver functions. If his liver functions do not improve, may consider ultrasound of the liver. 3. Elevated CK. The patient does have an elevated CK of 11,160. I suspect this is related to rhabdomyolysis as the patient did have 2 seizures today. We will continue with IV hydration. I will give him another L of normal saline bolus and continue normal saline at 175 cc overnight. We will repeat his CK in the morning. I did speak to Dr. Solorio from Cardiology who will consult on the patient tomorrow. Due to the elevated CK and his elevated troponin and ST- depressions in lead III, IV, and V, Dr. Solorio has recommended that we treat his rhabdomyolysis with IV fluids and continue to monitor his CKs at this time. 4. Elevated troponin. He does have an elevated troponin of 0.09 and repeat was 0.16. This is likely related to his rhabdomyolysis. The patient does have ST- depressions noted in the V3, 4, 5, and 6 on his EKG which appears to be consistent from 2016. Dr. Solorio from Cardiology will see in consult on the patient tomorrow morning. 5. Alcohol abuse. The patient did have alcohol withdrawal seizure today. The patient has been binge drinking for approximately 2 weeks, 1 L of scotch daily and abruptly stopped drinking approximately 24 hours ago, subsequently having a seizure. The patient has had been treated here previously for alcohol withdrawal, but has never exhibited alcohol withdrawal seizures. We will place him on seizure precautions and WAM protocol. 6. Hypokalemia. The patient does have a low potassium. We will replace his potassium. 7. Hyponatremia. I suspect his hyponatremia is related to him not eating and excessive alcohol use. He did receive IV hydration, we will repeat BMP in the a.m. 8. Thrombocytopenia. The patient does have a platelet count of 94. I suspect this is related to his alcohol abuse. We will repeat his CBC in the a.m. 9. DVT prophylaxis. I will place him on SCDs. 10. Disposition. I will place the patient in the ICU as the patient has had 2 seizures today and concern for further seizure activity. We will continue him on WAM protocol and close monitoring and put seizures precautions. TIME SPENT: Time spent on this admission was approximately 70 minutes, greater than half that time was spent at the bedside reviewing events leading thus far to his hospitalization, performing physical exam, and reviewing my plan of care. I have discussed this with my attending, Dr. Cooper Gorman; he is in agreement with my plan. GEORGIE VARELA, COMMUNITY ORGANIZER [id number]/[facility] #: [id number] BITA
[2018-10-27] MEDS: NS 0.9% 1000 ML** 1,000 ML IV SCH (03:56)
[2018-10-27 06:58] LABS: ALT 174 U/L (7-52); Albumin 3.4 g/dL (3.2-5.2); Albumin/Globulin Ratio 1.4 (1-3); Alkaline Phosphatase 50 U/L (34-104); BUN/Creatinine Ratio 16.9 (8-20); Blood Urea Nitrogen 11 mg/dL (6-24); CO2 Carbon Dioxide 24 mmol/L (22-32); Calcium 8.4 mg/dL (8.6-10.3); Chloride 100 mmol/L (101-111); Cholesterol 155 mg/dL; EGFR African American 154.3 (>60); EGFR Non-African American 127.5 (>60); Globulin 2.5 g/dL (2-4); Glucose 105 mg/dL (70-100); HDL Cholesterol 78.1 mg/dL; LDL Cholesterol 66 mg/dL; Sodium 132 mmol/L (135-145); Total Protein 5.9 g/dL (6.4-8.9); Triglycerides 56 mg/dL
[2018-10-27 07:15] LABS: ABS Monocytes 0.5 10^3/ul (0-0.8); ABS Neutrophils 7.3 10^3/ul (1.5-7.7); Eosinophil % 0.2 %; Hematocrit 40 % (42-52); Hemoglobin 13.8 g/dL (14.0-18.0); Lymphocyte % 11.7 %; Mean Corpuscular HGB Conc 35 g/dL (31-36); Mean Corpuscular Hemoglobin 31 pg (27-31); Mean Corpuscular Volume 89 fL (80-94); Mean Platelet Volume 9.3 fL (7.4-10.4); Nucleated Red Blood Cells % 0.2; Platelet Count 70 10^3/uL (150-450); Red Blood Count 4.47 10^6 /uL (4.18-5.48); Red Cell Distribution Width 14 % (10-15); White Blood Count 8.8 10^3/uL (3.5-10.8)
[2018-10-27 07:16] LABS: Creatine Kinase 11746 U/L (10-223)
[2018-10-27 08:12] LABS: Anion Gap 8 mmol/L (2-11)
[2018-10-27] MEDS ORDERED: NS 0.9% 1000 ML** 1,000 ML IV ONE (08:50)
[2018-10-27 08:51] LABS: Indirect Bilirubin 1.4 mg/dL (0.3-1.0); Potassium Redraw 3.1 mmol/L (3.5-5.0); Total Bilirubin 1.7 mg/dL (0.2-1.0)
[2018-10-27] MEDS: Folic Acid TAB* 1 MG PO SCH (08:56)
[2018-10-27] MEDS: Multivitamins/Minerals TAB PO SCH (08:56)
[2018-10-27] MEDS: Thiamine TAB* 100 MG TAB PO SCH (08:56)
[2018-10-27] MEDS ORDERED: Thiamine TAB* 100 MG TAB PO SCH (09:00)
[2018-10-27] MEDS ORDERED: Folic Acid TAB* 1 MG PO SCH (09:00)
[2018-10-27] MEDS ORDERED: Multivitamins/Minerals TAB PO SCH (09:00)
[2018-10-27] MEDS: LORazepam TAB(*) 1 MG PO PRN ×3 (09:07→21:48)
[2018-10-27 10:20] LABS: TSH (Thyroid Stimulating Horm) 0.81 mcIU/mL (0.34-5.60)
[2018-10-27] MEDS ORDERED: Potassium Chlor TAB* 20 MEQ TAB.ER PO ONE (12:11)
[2018-10-27] MEDS: NS 0.9% w/ 20 Meq KCL 1000 ML* 1,000 ML IV SCH ×3 (12:43→23:26)
--- NOTE | 2018-10-27 13:13 | PN ---
Subjective Date of Service: 10/27/18 Interval History: Patient seen and examined. Patient states he feels confused and disoriented. Is able to state reason for admission is "I drank way too much." Endorses generalized muscle pain and tremors. Denies headache, no fevers, no SOB, no chest pain. No n/v, tolerating PO. Objective Active Medications: Acetaminophen (Tylenol Tab*) 650 mg PO Q4H PRN PRN Reason: PAIN Last Admin: 10/26/18 19:28 Dose: 650 mg Folic Acid (Folvite Tab*) 1 mg PO DAILY [facility] Last Admin: 10/27/18 08:56 Dose: 1 mg Dexmedetomidine HCl 1,000 mcg/ (Sodium Chloride) 250 mls @ 4.4 mls/hr IV ONCE ONE; Protocol Stop: 10/29/18 10:10 Last Admin: 10/27/18 02:16 Dose: 4.4 mls/hr Potassium Chloride/Sodium Chloride (Ns 0.9% W/ 20 Meq Kcl 1000 Ml*) 1,000 mls @ 150 mls/hr IV PER RATE [facility] Last Admin: 10/27/18 12:43 Dose: 150 mls/hr Lorazepam (Ativan Tab(*)) 0 - 6 mg PO .PER [facility] PROTOCOL [facility]; Protocol Lorazepam (Ativan Inj*) 0 - 3 mg IV PUSH .PER [facility] PROTOCOL [facility]; Protocol Last Admin: 10/26/18 23:55 Dose: 2 mg Lorazepam (Ativan Tab(*)) 2 mg PO Q4H PRN PRN Reason: ANXIETY Last Admin: 10/27/18 09:07 Dose: 2 mg Miscellaneous (Ativan Pyxis Jackson) 1 ea N/A .ATIVAN IV JACKSON PRN PRN Reason: PYXIS JACKSON Multivitamins/Minerals (Theragran/Minerals Tab*) 1 tab PO DAILY [facility] Last Admin: 10/27/18 08:56 Dose: 1 tab Thiamine HCl (Vitamin B-1 Tab*) 100 mg PO DAILY [facility] Last Admin: 10/27/18 08:56 Dose: 100 mg Vital Signs - 8 hr 10/27/18 10/27/18 10/27/18 06:00 07:00 07:05 Temperature Pulse Rate Respiratory 17 17 17 Rate Blood Pressure 109/69 (mmHg) O2 Sat by Pulse Oximetry 10/27/18 10/27/18 10/27/18 07:08 08:00 09:00 Temperature 99 F Pulse Rate 59 74 Respiratory 21 16 17 Rate Blood Pressure 119/69 102/66 132/80 (mmHg) O2 Sat by Pulse 93 95 Oximetry 10/27/18 10/27/18 10/27/18 09:07 10:00 11:00 Temperature Pulse Rate 68 59 Respiratory 20 16 18 Rate Blood Pressure 101/57 119/80 (mmHg) O2 Sat by Pulse 93 94 Oximetry 10/27/18 10/27/18 10/27/18 11:11 12:00 12:01 Temperature 98.3 F Pulse Rate 77 70 Respiratory 19 20 Rate Blood Pressure 116/62 (mmHg) O2 Sat by Pulse 94 94 Oximetry Oxygen Devices in Use Now: None Appearance: alert, tremulous, mild distress Eyes: No Scleral Icterus, PERRLA Ears/Nose/Mouth/Throat: NL Teeth, Lips, Gums, Mucous Membranes Moist Neck: NL Appearance and Movements; NL JVP, Trachea Midline Respiratory: Symmetrical Chest Expansion and Respiratory Effort, Clear to Auscultation Cardiovascular: NL Sounds; No Murmurs; No JVD, RRR, No Edema Abdominal: NL Sounds; No Tenderness; No Distention Extremities: No Edema, No Clubbing, Cyanosis Skin: No Rash or Ulcers Neurological: - - A&Ox2, tremors, periods of confusion Nutrition: Taking PO's Result Diagrams: 10/27/18 05:23 10/27/18 08:25 Microbiology and Other Data: Microbiology 10/26/18 12:39 Urine Culture - Final Urine No Growth (<1,000 CFU/mL) 10/26/18 15:14 Nasal Screen MRSA (PCR) - Final Nasal Mrsa Not Detected Assess/Plan/Problems-Billing Assessment: This is a 53 year old male with history of ETOH abuse that presented to the ED with acute alcohol withdrawal seizures and rhabdomyolysis. - Patient Problems (1) Alcohol withdrawal Priority: High Code(s): F10.239 - ALCOHOL DEPENDENCE WITH WITHDRAWAL, UNSPECIFIED SNOMED Code(s): 847743631 Comment: - On WAM and scoring - Will start on gabapentin for withdrawal symptoms - continue precedex drip and wean as tolerated (2) Seizures due to metabolic disorder Code(s): R56.9 - UNSPECIFIED CONVULSIONS; E88.9 - METABOLIC DISORDER, UNSPECIFIED SNOMED Code(s): 594950281 Comment: - 2/2 ETOH abrupt abstinence at home - Stable, on seizure precautions (3) Rhabdomyolysis Code(s): M62.82 - RHABDOMYOLYSIS SNOMED Code(s): 840081038 Comment: - 2/2 seizures - Continue IVF and monitor renal function - Recheck CK in AM (4) Hypokalemia Code(s): E87.6 - HYPOKALEMIA SNOMED Code(s): 40233716 Comment: - continue repletion (5) Alcoholic hepatitis Code(s): K70.10 - ALCOHOLIC HEPATITIS WITHOUT ASCITES SNOMED Code(s): 290335113 Comment: - Monitor LFTs and coags (6) Elevated troponin Code(s): R74.8 - ABNORMAL LEVELS OF OTHER SERUM ENZYMES SNOMED Code(s): 454974742 Comment: - 2/2 demand ischemia in setting of acute withdrawal seizures - Continue tele, no chest pain (7) DVT prophylaxis Code(s): DWS0897 - SNOMED Code(s): 799785466 Comment: - HSQ (8) Full code status Code(s): Z78.9 - OTHER SPECIFIED HEALTH STATUS SNOMED Code(s): 687499390 Status and Disposition: Inpatient, critical. Time spent 40 minutes critical care.
[2018-10-27] MEDS: Gabapentin CAP(*) 300 MG PO SCH ×2 (14:31→21:48)
[2018-10-27] MEDS: Ondansetron INJ* 2 MG/ML VIAL IV PRN (21:47)
[2018-10-28] MEDS: NS 0.9% w/ 20 Meq KCL 1000 ML* 1,000 ML IV SCH ×2 (06:03→17:29)
[2018-10-28] MEDS: Gabapentin CAP(*) 300 MG PO SCH ×3 (08:57→21:42)
[2018-10-28] MEDS: Multivitamins/Minerals TAB PO SCH (08:58)
[2018-10-28] MEDS: Thiamine TAB* 100 MG TAB PO SCH (08:58)
[2018-10-28] MEDS: Folic Acid TAB* 1 MG PO SCH (08:58)
[2018-10-28] MEDS: Acetaminophen TAB* 325 MG PO PRN (10:39)
[2018-10-28 10:45] LABS: Albumin 3.8 g/dL (3.2-5.2); Calcium 9.5 mg/dL (8.6-10.3); Potassium 3.2 mmol/L (3.5-5.0); Total Bilirubin 0.9 mg/dL (0.2-1.0)
[2018-10-28 10:51] LABS: Albumin/Globulin Ratio 1.4 (1-3); BUN/Creatinine Ratio 14.5 (8-20); Globulin 2.8 g/dL (2-4); Total Protein 6.6 g/dL (6.4-8.9)
[2018-10-28] MEDS ORDERED: Potassium Chlor TAB* 20 MEQ TAB.ER PO ONE (11:03)
[2018-10-28] MEDS: LORazepam TAB(*) 1 MG PO PRN (12:21)
--- NOTE | 2018-10-28 19:03 | PN ---
Subjective Date of Service: 10/28/18 Interval History: Patient seen and examined. Feeling improved, no acute overnight events, no seizures, WAM scores low, reports anxiety only. No pain, no SOB, no fevers, no chest pain. Objective Active Medications: Acetaminophen (Tylenol Tab*) 650 mg PO Q4H PRN PRN Reason: PAIN Last Admin: 10/28/18 10:39 Dose: 650 mg Folic Acid (Folvite Tab*) 1 mg PO DAILY [facility] Last Admin: 10/28/18 08:58 Dose: 1 mg Gabapentin (Neurontin Cap(*)) 300 mg PO TID [facility] Last Admin: 10/28/18 14:43 Dose: 300 mg Potassium Chloride/Sodium Chloride (Ns 0.9% W/ 20 Meq Kcl 1000 Ml*) 1,000 mls @ 75 mls/hr IV PER RATE [facility] Last Admin: 10/28/18 17:29 Dose: 75 mls/hr Lorazepam (Ativan Tab(*)) 0 - 6 mg PO .PER [facility] PROTOCOL [facility]; Protocol Lorazepam (Ativan Tab(*)) 2 mg PO Q4H PRN PRN Reason: ANXIETY Last Admin: 10/28/18 12:21 Dose: 2 mg Multivitamins/Minerals (Theragran/Minerals Tab*) 1 tab PO DAILY [facility] Last Admin: 10/28/18 08:58 Dose: 1 tab Ondansetron HCl (Zofran Inj*) 4 mg IV Q4H PRN PRN Reason: NAUSEA Last Admin: 10/27/18 21:47 Dose: 4 mg Thiamine HCl (Vitamin B-1 Tab*) 100 mg PO DAILY [facility] Last Admin: 10/28/18 08:58 Dose: 100 mg Vital Signs - 8 hr 10/28/18 10/28/18 10/28/18 12:00 12:21 13:20 Temperature 98.4 F Pulse Rate 79 Respiratory 18 18 18 Rate Blood Pressure 142/83 (mmHg) O2 Sat by Pulse 96 Oximetry 10/28/18 10/28/18 14:43 15:00 Temperature 98.1 F Pulse Rate 72 Respiratory 17 18 Rate Blood Pressure 139/77 (mmHg) O2 Sat by Pulse 98 Oximetry Oxygen Devices in Use Now: None Appearance: alert, NAD Eyes: No Scleral Icterus, PERRLA Ears/Nose/Mouth/Throat: NL Teeth, Lips, Gums, Mucous Membranes Moist Neck: NL Appearance and Movements; NL JVP, Trachea Midline Respiratory: Symmetrical Chest Expansion and Respiratory Effort, Clear to Auscultation Cardiovascular: NL Sounds; No Murmurs; No JVD, RRR, No Edema Abdominal: NL Sounds; No Tenderness; No Distention Extremities: No Edema Skin: No Rash or Ulcers Neurological: Alert and Oriented x 3, NL Sensation, NL Gait Nutrition: Taking PO's Result Diagrams: 10/27/18 05:23 10/28/18 10:04 Microbiology and Other Data: Microbiology 10/26/18 12:39 Urine Culture - Final Urine No Growth (<1,000 CFU/mL) 10/26/18 15:14 Nasal Screen MRSA (PCR) - Final Nasal Mrsa Not Detected Assess/Plan/Problems-Billing Assessment: This is a 53 year old male with history of ETOH abuse that presented to the ED with acute alcohol withdrawal seizures and rhabdomyolysis. - Patient Problems (1) Alcohol withdrawal Priority: High Code(s): F10.239 - ALCOHOL DEPENDENCE WITH WITHDRAWAL, UNSPECIFIED SNOMED Code(s): 786795211 Comment: - On WAM, scores 1-2 - Continue gabapentin for withdrawal symptoms (2) Seizures due to metabolic disorder Code(s): R56.9 - UNSPECIFIED CONVULSIONS; E88.9 - METABOLIC DISORDER, UNSPECIFIED SNOMED Code(s): 871147284 Comment: - 2/2 ETOH abrupt abstinence at home - Stable, DC seizure precautions (3) Rhabdomyolysis Code(s): M62.82 - RHABDOMYOLYSIS SNOMED Code(s): 096228984 Comment: - 2/2 seizures - Continue IVF and monitor renal function - CK trending down to 8K today (from >11k) - Decrease IVF (4) Hypokalemia Code(s): E87.6 - HYPOKALEMIA SNOMED Code(s): 77077768 Comment: - continue repletion (5) Alcoholic hepatitis Code(s): K70.10 - ALCOHOLIC HEPATITIS WITHOUT ASCITES SNOMED Code(s): 431495702 Comment: - Monitor LFTs and coags (6) Elevated troponin Code(s): R74.8 - ABNORMAL LEVELS OF OTHER SERUM ENZYMES SNOMED Code(s): 875704409 Comment: - 2/2 demand ischemia in setting of acute withdrawal seizures - Continue tele, no chest pain (7) DVT prophylaxis Code(s): QMU0991 - SNOMED Code(s): 252971336 Comment: - HSQ (8) Full code status Code(s): Z78.9 - OTHER SPECIFIED HEALTH STATUS SNOMED Code(s): 057997598 Status and Disposition: Inpatient, downgraded from ICU to [address] [place] [address]. Anticipate DC to home when medically stable in 1-2 days.
[2018-10-29] MEDS: Ondansetron INJ* 2 MG/ML VIAL IV PRN (05:43)
[2018-10-29] MEDS: NS 0.9% w/ 20 Meq KCL 1000 ML* 1,000 ML IV SCH (05:47)
[2018-10-29] MEDS: Folic Acid TAB* 1 MG PO SCH (09:26)
[2018-10-29] MEDS: Gabapentin CAP(*) 300 MG PO SCH ×2 (09:27→21:55)
[2018-10-29] MEDS: Multivitamins/Minerals TAB PO SCH (09:27)
[2018-10-29] MEDS: Thiamine TAB* 100 MG TAB PO SCH (09:27)
[2018-10-29 11:20] LABS: Albumin 3.9 g/dL (3.2-5.2); Albumin/Globulin Ratio 1.3 (1-3); BUN/Creatinine Ratio 18.1 (8-20); Calcium 9.8 mg/dL (8.6-10.3); EGFR African American 100.8 (>60); EGFR Non-African American 83.3 (>60); Potassium 3.5 mmol/L (3.5-5.0); Total Bilirubin 0.7 mg/dL (0.2-1.0); Total Protein 6.9 g/dL (6.4-8.9)
--- NOTE | 2018-10-29 14:49 | EEG ---
ELECTROENCEPHALOGRAPHY: DATE OF STUDY: 10/29/18 LOCATION: He is an inpatient in room 419. REFERRING PROVIDER: Dr. Bartholomew. CLINICAL PROBLEM: Observed seizure at home. The patient reportedly was drinking a bottle of scotch a day and stopped suddenly. Medications at the time of the recording consists of Zofran, Ativan, vit amins, gabapentin. REPORT: This 19-channel EEG is remarkable for background rhythms consisting largely of low voltage f ast pattern. There is a discernible alpha rhythm in the occipital derivations at 9 cycles per second , which is symmetric. Sweat artifact is noted occasionally. Activation procedures were not attempte d. The patient gets drowsy at times with central and bitemporal slowing and briefly parasagittal sle ep spindles are noted, signifying stage II sleep. There were no clinical events. There were no focal , lateralized or epileptiform abnormalities. INTERPRETATION: Essentially a normal awake and asleep EEG. [id number]/[facility] #: [id number]
[2018-10-29] MEDS ORDERED: Lactated Ringers 1000 ML Bag* 1,000 ML IV ONE (16:33)
[2018-10-29] MEDS: LORazepam TAB(*) 1 MG PO PRN (17:07)
--- NOTE | 2018-10-29 17:31 | PN ---
Subjective Date of Service: 10/29/18 Interval History: HOSPITALIST PROGRESS NOTE Patient seen and examined at bedside. Care reviewed and d/w Loren Tate RN. He feels better today. Tremors have subsided. He's in good spirits, hopeful for discharge. Family History: Unchanged from Admission Social History: Unchanged from Admission Past Medical History: Unchanged from Admission Objective Active Medications: Acetaminophen (Tylenol Tab*) 650 mg PO Q4H PRN PRN Reason: PAIN Last Admin: 10/28/18 10:39 Dose: 650 mg Folic Acid (Folvite Tab*) 1 mg PO DAILY [facility] Last Admin: 10/29/18 09:26 Dose: 1 mg Gabapentin (Neurontin Cap(*)) 300 mg PO BID [facility] Lactated Ringer's (Lactated Ringers 1000 Ml Bag*) 1,000 mls @ 150 mls/hr IV PER RATE [facility] Lactated Ringer's (Lactated Ringers 1000 Ml Bag*) 1,000 mls @ 999 mls/hr IV ONCE ONE Stop: 10/29/18 17:33 Last Admin: 10/29/18 16:46 Dose: 999 mls/hr Lorazepam (Ativan Tab(*)) 0 - 6 mg PO .PER [facility] PROTOCOL [facility]; Protocol Lorazepam (Ativan Tab(*)) 2 mg PO Q4H PRN PRN Reason: ANXIETY Last Admin: 10/29/18 17:07 Dose: 2 mg Multivitamins/Minerals (Theragran/Minerals Tab*) 1 tab PO DAILY [facility] Last Admin: 10/29/18 09:27 Dose: 1 tab Ondansetron HCl (Zofran Inj*) 4 mg IV Q4H PRN PRN Reason: NAUSEA Last Admin: 10/29/18 05:43 Dose: 4 mg Thiamine HCl (Vitamin B-1 Tab*) 100 mg PO DAILY [facility] Last Admin: 10/29/18 09:27 Dose: 100 mg Vital Signs - 8 hr 10/29/18 10/29/18 10/29/18 09:27 12:00 16:00 Temperature 98.3 F 97.6 F Pulse Rate 75 68 Respiratory 17 19 19 Rate Blood Pressure 160/97 143/90 (mmHg) O2 Sat by Pulse 97 99 Oximetry 10/29/18 17:07 Temperature Pulse Rate Respiratory 16 Rate Blood Pressure (mmHg) O2 Sat by Pulse Oximetry Oxygen Devices in Use Now: None Appearance: Pleasant middle aged male sitting up in bed in NAD. Eyes: No Scleral Icterus Ears/Nose/Mouth/Throat: Mucous Membranes Moist Neck: Trachea Midline Respiratory: Symmetrical Chest Expansion and Respiratory Effort, Clear to Auscultation Cardiovascular: RRR - Normal S1 and S2 Neurological: Alert and Oriented x 3, NL Muscle Strength and Tone Result Diagrams: 10/27/18 05:23 10/29/18 10:25 Assess/Plan/Problems-Billing Assessment: Mr Degroot is a 53 yo M with PMH of anxiety, depression, ETOH abuse; who presented to the ED with acute alcohol withdrawal seizures and rhabdomyolysis. - Patient Problems (1) Alcohol withdrawal Comment: - Appears to be resolved at this time - has not required Ativan for withdrawal. - Continue Gabapentin. (2) Withdrawal seizures Comment: - CT brain showed no intracranial mass or hemorrhage. - D/w Neurology (Dr Ballesteros) - would not recommend AED for withdrawal seizures, but recommended EEG. This was done and showed a normal awake and asleep EEG. - Patient educated about withdrawal seizures and chance of recurrence if he drinks again. (3) Anxiety Comment: - This has been a chronic problem, and likely a spike driver of his ETOH intake. - He states he cannot tolerate SSRIs. Tried Fluoxetine, Sertraline, and another one he doesn't recall the name - all make him feel "in a fog", cause erectyle dysfunction, and were discontinued. Ativan works well, but we discussed why this is not the best options for him. As outpatient, consideration could be given for a SNRI. (4) Rhabdomyolysis Comment: - Secondary to seizures, but patient also exercises vigorously as outpatient and also uses creatine. - CPK trended back up today - will restart IVF and monitor CPK. - Renal function remains normal. (5) Alcoholic hepatitis Comment: - LFTs are trending down. - Coags were normal. (6) Elevated troponin Comment: - Mild troponin elevation, likely secondary to demand ischemia in the setting of withdrawal and seizures. Also reflecting CPK elevation. - No c/o CP and describes good exercise capacity. - EKG shows T wave inversions V4-V6 with signs of LVH. - No significant arrhythmias on Tele - will d/c. - Will benefit of echo and stress test as outpatient. (7) DVT prophylaxis Comment: - Encourage ambulation. (8) Full code status Status and Disposition: Inpatient. Possible d/c in AM if CPK trending down nicely.
[2018-10-29] MEDS: Lactated Ringers 1000 ML Bag* 1,000 ML IV SCH (19:52)
[2018-10-30] MEDS: Lactated Ringers 1000 ML Bag* 1,000 ML IV SCH ×2 (03:23→10:26)
[2018-10-30 06:53] LABS: Albumin 3.7 g/dL (3.2-5.2); Albumin/Globulin Ratio 1.3 (1-3); BUN/Creatinine Ratio 14.4 (8-20); Calcium 9.1 mg/dL (8.6-10.3); EGFR Non-African American 87.6 (>60); Globulin 2.9 g/dL (2-4); Potassium 3.8 mmol/L (3.5-5.0); Total Bilirubin 0.6 mg/dL (0.2-1.0); Total Protein 6.6 g/dL (6.4-8.9)
[2018-10-30] MEDS: Gabapentin CAP(*) 300 MG PO SCH (08:28)
[2018-10-30] MEDS: Multivitamins/Minerals TAB PO SCH (08:28)
[2018-10-30] MEDS: Thiamine TAB* 100 MG TAB PO SCH (08:28)
[2018-10-30] MEDS: Folic Acid TAB* 1 MG PO SCH (08:28)
[2018-10-30] MEDS: LORazepam TAB(*) 1 MG PO PRN (08:29)
[2018-10-30] MEDS: Acetaminophen TAB* 325 MG PO PRN (08:38)
[2018-10-30] MEDS ORDERED: LORazepam TAB(*) 1 MG PO PRN (15:52)
--- NOTE | 2018-10-30 16:20 | PN ---
"Progress Note - Progress Note Date of Service: 10/30/18 Note: This report was requested by: Dominick Avalos | Reference #: [id number] Others' Prescriptions Patient Name: Reji Degroot Date: 1965 Address: [address] [place] [address] Sex: Male Rx Written Rx Dispensed Drug Quantity Days Supply Prescriber Name 01/07/2018 01/09/2018 lorazepam 0.5 mg tablet 30 15 Linwood Bui ([employer]) 12/18/2017 12/18/2017 lorazepam 0.5 mg tablet 30 15 Linwood Bui (BESS)"
--- NOTE | 2018-10-30 17:09 | DS ---
CC: Linwood Bui NP * DISCHARGE SUMMARY: DATE OF ADMISSION: 10/26/18 DATE OF DISCHARGE: 10/30/18 HISTORY OF PRESENT ILLNESS/HOSPITAL COURSE: This 53-year-old man was admitted with alcohol withdrawal seizures. He had a lot of stressors in his life. He had had episodes of binge drinking in the past. The last previous episode was in December 2017, before that in April 2017, and then one in 2015. The patient was drinking at least a liter of scotch a day for 2 weeks. He had his last drink the day before admission. All the alcohol was removed from the house about noon the day before admission. The day of admission, he had a seizure lasting 30 seconds, being unresponsive and shaking. EMS was called. Subsequently, he had another seizure. He was given Versed by EMS. He had no further seizures in the hospital. He was given benzodiazepines under the [facility] protocol. He has a history of anxiety and depression. He had made some suicidal statements to his , but denied any suicidal ideation when he arrived at the hospital. He was treated with the [facility] protocol and appeared to be recovered on the day of discharge. He had received 2 doses of lorazepam 2 mg on the day of discharge. He seemed slightly sleepy. I am going to give him 1 mg doses, just 4 doses, to take at home to use every 6 hours p.r.n. for anxiety. He was told that [place] State law prohibits him driving 6 months after seizure. I told him I recommended that he not drive for 6 months after the seizure. He will follow up with his primary, Linwood Bui NP. FINAL DIAGNOSES: 1. Alcohol withdrawal seizure. 2. Alcohol abuse. 3. Anxiety. DISCHARGE MEDICATIONS: 1. Lorazepam 1 mg every 6 hours p.r.n., 4 dispensed. 2. Thiamine 100 mg daily. 3. Fluoxetine 10 mg daily. 4. Folic acid 1 mg daily. DISPOSITION ON DISCHARGE: Discharged home. CONDITION ON DISCHARGE: Stable. [id number]/[facility] #: [id number] BITA
[2018-10-30 18:41] VITALS: BP 136/78
== END 2018-10-30 17:25 | disposition home or self-care (01) | DRG 101 ==
LOC: ED 09:50 → ICU 13:57 → MERGE 13:57 → MED 10-27 18:32
PROVIDERS: ADMIT Internal Medicine; ATTEND Internal Medicine
DX: G40.89 Other seizures (principal); F10.239 Alcohol dependence with withdrawal, unspecified; E87.1 Hypo-osmolality and hyponatremia; Y90.0 Blood alcohol level of less than 20 mg/100 ml; F41.9 Anxiety disorder, unspecified; F32.9 Major depressive disorder, single episode, unspecified; R94.5 Abnormal results of liver function studies; K70.11 Alcoholic hepatitis with ascites; R74.8 Abnormal levels of other serum enzymes; E87.6 Hypokalemia; D69.59 Other secondary thrombocytopenia; Z79.899 Other long term (current) drug therapy; Z80.52 Family history of malignant neoplasm of bladder; Z87.891 Personal history of nicotine dependence
CPT/HCPCS: 36415; 70450; 71045; 80048; 80053; 80061; 80076; 80307; 80320; 81003; 81015; 82150; 82247; 82248; 82550; 82553; 82570; 82803; 83036; 83605; 83690; 83735; 83874; 83930; 83935; 84300; 84443; 84484; 84550; 85025; 85060; 85610; 85730; 87086; 87641; 93005; 95819; 99285; A9270-GY; G0480; J2060; J2405; J3411

== ENCOUNTER 2019-04-29 09:23 | Emergency (ER) | payer OTHER ==
[2019-04-29] MEDS ORDERED: Thiamine INJ* 100 MG, Folic Acid IV* 1 MG, Multiple Vitamin IV ADULT* 10 ML in NS 0.9% ... IV ONE (09:33)
[2019-04-29] MEDS ORDERED: Ondansetron INJ* 2 MG/ML VIAL IV ONE (09:33)
[2019-04-29 09:58] LABS: ABS Basophils 0.1 10^3/ul (0-0.2); ABS Eosinophils 0.1 10^3/ul (0-0.6); ABS Lymphocytes 2.7 10^3/ul (1.0-4.8); ABS Monocytes 0.4 10^3/ul (0-0.8); ABS Neutrophils 3.4 10^3/ul (1.5-7.7); Hematocrit 49 % (42-52); Hemoglobin 16.7 g/dL (14.0-18.0); Mean Corpuscular HGB Conc 34 g/dL (31-36); Mean Corpuscular Hemoglobin 30 pg (27-31); Mean Corpuscular Volume 89 fL (80-94); Mean Platelet Volume 7.7 fL (7.4-10.4); Nucleated Red Blood Cells % 0.1; Platelet Count 217 10^3/uL (150-450); Red Blood Count 5.54 10^6 /uL (4.18-5.48); Red Cell Distribution Width 14 % (10-15); White Blood Count 6.6 10^3/uL (3.5-10.8)
[2019-04-29 10:04] LABS: INR 0.97 (0.82-1.09)
[2019-04-29 10:05] LABS: Urine Appearance Clear; Urine Bilirubin Negative (Negative); Urine Blood Negative (Negative); Urine Color Straw; Urine Glucose Negative (Negative); Urine Ketones Negative (Negative); Urine Nitrite Negative (Negative); Urine Protein Negative (Negative); Urine Specific Gravity 1.006 (1.010-1.030); Urine Urobilinogen Negative (Negative)
[2019-04-29 10:14] LABS: ALT 33 U/L (7-52); AST 42 U/L (13-39); Albumin 4.6 g/dL (3.2-5.2); Albumin/Globulin Ratio 1.4 (1-3); Alkaline Phosphatase 50 U/L (34-104); Anion Gap 9 mmol/L (2-11); BUN/Creatinine Ratio 19.3 (8-20); Blood Urea Nitrogen 26 mg/dL (6-24); C Reactive Protein < 1.00 mg/L (<8.01); CO2 Carbon Dioxide 26 mmol/L (22-32); Calcium 9.9 mg/dL (8.6-10.3); Chloride 104 mmol/L (101-111); EGFR African American 66.4 (>60); EGFR Non-African American 54.9 (>60); Globulin 3.3 g/dL (2-4); Glucose 127 mg/dL (70-100); Potassium 3.9 mmol/L (3.5-5.0); Sodium 139 mmol/L (135-145); Total Protein 7.9 g/dL (6.4-8.9)
--- NOTE | 2019-04-29 10:22 | ED ---
Substance Abuse/Use - HPI Summary HPI Summary: Patient is a 53-year-old male with a history of alcoholism, alcohol abuse and withdrawal seizures presents to the ED with "puking up blood" per his son-in- law. Patient states he did not have vomiting episodes, just noticed a small amount this morning and was brought in by his son-in-law. He states he has been sober for 6 mos, relapsed last night and became very intoxicated per son in law. Noticed this morning he had emesis with blood specks which then led to bloody clots. On arrival to the ED, he was dry heaving with no obvious blood noted. Pt denies significant past medical history. Per son in law, patient has had a recent dx of seizures with alcohol withdrawal. Family also concerned d/t how intoxicated he because despite "not drinking very much." Denies any hx of anemia. Denies hematochezia, melena, coffee ground emesis. - History Of Current Complaint Chief Complaint: EDNauseaVomitDiarrh Stated Complaint: DRANK LAST NIGHT/VOMITING BLOOD PER PT SON Time Seen by Provider: 04/29/19 09:27 Hx Obtained From: Patient Onset/Duration of Drug/ETOH Abuse: Hours Ingestion History: Amount Ingested - a little Timing Of Abuse: Binge Use, Recent Cessation For A Period Of - 6 mos Severity Initially: Moderate Severity Currently: Mild Aggravating Factor(s): Nothing Alleviating Factor(s): Nothing Associated Signs And Symptoms: Nausea, Vomiting - Risk Factor(s) Completed Suicide Risk Factors: Male, White Pakistani - Allergies/Home Medications Allergies/Adverse Reactions: Allergies Allergy/AdvReac Type Severity Reaction Status Date / Time No Known Allergies Allergy Verified 04/29/19 09:30 PMH/Surg Hx/FS Hx/Imm Hx Previously Healthy: Yes Endocrine/Hematology History: Denies: Hx Diabetes Cardiovascular History: Reports: Other Cardiovascular Problems/Disorders - heart murmur Denies: Hx Congestive Heart Failure, Hx Coronary Artery Disease, Hx Hypertension Respiratory History: Denies: Hx Chronic Obstructive Pulmonary Disease (COPD) Sensory History: Reports: Hx Contacts or Glasses Denies: Hx Legally Blind, Hx Hearing Aid Opthamlomology History: Reports: Hx Contacts or Glasses Denies: Hx Legally Blind Neurological History: Reports: Hx Seizures - two seizures today Psychiatric History: Reports: Hx Anxiety, Hx Depression, Hx Substance Abuse - alcohol, rehab x 1 Denies: Hx Eating Disorder, Hx of Violent Episodes Against Others - Immunization History Hx Pertussis Vaccination: No Immunizations Up to Date: Yes Infectious Disease History: No Infectious Disease History: Denies: Traveled Outside the [place] in Last 30 Days - Family History Known Family History: Positive: None, Other Family History: ETOH - Social History Occupation: Employed Full-time Lives: With Family Alcohol Use: intermittent, hx etoh abuse Alcohol Amount: Alcoholic Hx Substance Use: No Substance Use Type: Reports: None Hx Tobacco Use: Yes Smoking Status (MU): Former Smoker Review of Systems Negative: Fever, Chills, Fatigue, Skin Diaphoresis Negative: Palpitations, Chest Pain Positive: Vomiting - with bloody emesis + clots. Negative: Abdominal Pain, Diarrhea, Nausea Positive: no symptoms reported, see HPI Negative: Arthralgia, Myalgia Skin: Negative Neurological: Negative All Other Systems Reviewed And Are Negative: Yes Physical Exam Triage Information Reviewed: Yes Vital Signs On Initial Exam: Initial Vitals Temp Pulse Resp BP Pulse Ox 97 F 66 16 124/77 97 04/29/19 09:26 04/29/19 09:26 04/29/19 09:26 04/29/19 09:26 04/29/19 09:26 Vital Signs Reviewed: Yes Appearance: Positive: Well-Appearing, Well-Nourished Skin: Positive: Warm, Skin Color Reflects Adequate Perfusion Head/Face: Positive: Normal Head/Face Inspection Eyes: Positive: EOMI, [place], Conjunctiva Clear Neck: Positive: Supple, No Lymphadenopathy Respiratory/Lung Sounds: Positive: Clear to Auscultation, Breath Sounds Present Cardiovascular: Positive: RRR, Pulses are Symmetrical in both Upper and Lower Extremities Abdomen Description: Positive: Nontender, Soft Bowel Sounds: Positive: Present Musculoskeletal: Positive: Normal, Strength/ROM Intact Neurological: Positive: Speech Normal Psychiatric: Positive: Affect/Mood Appropriate AVPU Assessment: Alert Procedures - Sedation Patient Received Moderate/Deep Sedation with Procedure: No Diagnostics - Vital Signs Vital Signs Temp Pulse Resp BP Pulse Ox 04/29/19 10:00 56 14 93 04/29/19 09:47 59 15 110/66 91 04/29/19 09:44 59 16 94 04/29/19 09:26 97 F 66 16 124/77 97 - Laboratory Lab Results: Lab Results 04/29/19 04/29/19 04/29/19 Range/Units 09:45 09:45 09:45 WBC 6.6 (3.5-10.8) 10^3/uL RBC 5.54 H (4.18-5.48) 10^6 /uL Hgb 16.7 (14.0-18.0) g/dL Hct 49 (42-52) % MCV 89 (80-94) fL MCH 30 (27-31) pg MCHC 34 (31-36) g/dL RDW 14 (10-15) % Plt Count 217 (150-450) 10^3/uL MPV 7.7 (7.4-10.4) fL Neut % (Auto) 50.6 % Lymph % (Auto) 41.0 % Boundary % (Auto) 5.4 % Eos % (Auto) 2.0 % Baso % (Auto) 1.0 % Absolute Neuts (auto) 3.4 (1.5-7.7) 10^3/ul Absolute Lymphs (auto) 2.7 (1.0-4.8) 10^3/ul Absolute Monos (auto) 0.4 (0-0.8) 10^3/ul Absolute Eos (auto) 0.1 (0-0.6) 10^3/ul Absolute Basos (auto) 0.1 (0-0.2) 10^3/ul Absolute Nucleated RBC 0.0 10^3/ul Nucleated RBC % 0.1 INR (Anticoag Therapy) 0.97 (0.82-1.09) Sodium (135-145) mmol/L Potassium (3.5-5.0) mmol/L Chloride (101-111) mmol/L Carbon Dioxide (22-32) mmol/L Anion Gap (2-11) mmol/L BUN (6-24) mg/dL Creatinine (0.67-1.17) mg/dL Est GFR ( Amer) (>60) Est GFR (Non-Af Amer) (>60) BUN/Creatinine Ratio (8-20) Glucose (70-100) mg/dL Lactic Acid (0.5-2.0) mmol/L Calcium (8.6-10.3) mg/dL Total Bilirubin (0.2-1.0) mg/dL AST (13-39) U/L ALT (7-52) U/L Alkaline Phosphatase (34-104) U/L C-Reactive Protein (<8.01) mg/L Total Protein (6.4-8.9) g/dL Albumin (3.2-5.2) g/dL Globulin (2-4) g/dL Albumin/Globulin Ratio (1-3) Lipase (11.0-82.0) U/L Urine Color Straw Urine Appearance Clear Urine pH 5.0 (5-9) Ur Specific [place] 1.006 L (1.010-1.030) Urine Protein Negative (Negative) Urine Ketones Negative (Negative) Urine Blood Negative (Negative) Urine Nitrate Negative (Negative) Urine Bilirubin Negative (Negative) Urine Urobilinogen Negative (Negative) Ur Leukocyte Esterase Negative (Negative) Urine Glucose Negative (Negative) 04/29/19 04/29/19 Range/Units 09:45 09:45 WBC (3.5-10.8) 10^3/uL RBC (4.18-5.48) 10^6 /uL Hgb (14.0-18.0) g/dL Hct (42-52) % MCV (80-94) fL MCH (27-31) pg MCHC (31-36) g/dL RDW (10-15) % Plt Count (150-450) 10^3/uL MPV (7.4-10.4) fL Neut % (Auto) % Lymph % (Auto) % Boundary % (Auto) % Eos % (Auto) % Baso % (Auto) % Absolute Neuts (auto) (1.5-7.7) 10^3/ul Absolute Lymphs (auto) (1.0-4.8) 10^3/ul Absolute Monos (auto) (0-0.8) 10^3/ul Absolute Eos (auto) (0-0.6) 10^3/ul Absolute Basos (auto) (0-0.2) 10^3/ul Absolute Nucleated RBC 10^3/ul Nucleated RBC % INR (Anticoag Therapy) (0.82-1.09) Sodium 139 (135-145) mmol/L Potassium 3.9 (3.5-5.0) mmol/L Chloride 104 (101-111) mmol/L Carbon Dioxide 26 (22-32) mmol/L Anion Gap 9 (2-11) mmol/L BUN 26 H (6-24) mg/dL Creatinine 1.35 H (0.67-1.17) mg/dL Est GFR ( Amer) 66.4 (>60) Est GFR (Non-Af Amer) 54.9 (>60) BUN/Creatinine Ratio 19.3 (8-20) Glucose 127 H (70-100) mg/dL Lactic Acid 1.7 (0.5-2.0) mmol/L Calcium 9.9 (8.6-10.3) mg/dL Total Bilirubin 0.30 (0.2-1.0) mg/dL AST 42 H (13-39) U/L ALT 33 (7-52) U/L Alkaline Phosphatase 50 (34-104) U/L C-Reactive Protein < 1.00 (<8.01) mg/L Total Protein 7.9 (6.4-8.9) g/dL Albumin 4.6 (3.2-5.2) g/dL Globulin 3.3 (2-4) g/dL Albumin/Globulin Ratio 1.4 (1-3) Lipase 59 (11.0-82.0) U/L Urine Color Urine Appearance Urine pH (5-9) Ur Specific [place] (1.010-1.030) Urine Protein (Negative) Urine Ketones (Negative) Urine Blood (Negative) Urine Nitrate (Negative) Urine Bilirubin (Negative) Urine Urobilinogen (Negative) Ur Leukocyte Esterase (Negative) Urine Glucose (Negative) Result Diagrams: 04/29/19 09:45 04/29/19 09:45 Lab Statement: Any lab studies that have been ordered have been reviewed, and results considered in the medical decision making process. Course/Dx - Course Course Of Treatment: On arrival into the ED, the patient appears fatigued. He is given 1 banana bag and 4 mg Zofran. Labs obtained which show a normal H&H. Bun/cr 26 and 1.35 respectively. Per patient, he feels well at this time and denies any nausea. Also, states the blood was insignificant and his family is scared for no reason. Patient has an alcohol level of 329. Per son-in-law, he likely quit drinking prior to arrival by about 5-7 hours. Patient is kept for 3.5 hours and does not have an episode of emesis or hematemesis. Patient states he is okay for discharge at this time. Discussed with patient and son-in -law regarding the Ativan medication for possible withdrawal like symptoms. It is unlikely he will have seizures, but possible. This is explained to family. They will give him one Ativan if he develops any tremors, agitation or diaphoresis. If anything worsens, he will return to the ED. I have recommended an inpatient alcohol program. Labs otherwise unremarkable. Hematemesis likely secondary form gastritis and [place]. - Diagnoses Differential Diagnosis/HQI/PQRI: Positive: Alcohol Abuse, Alcohol Withdrawal Provider Diagnoses: Hematemesis, Alcohol intoxication Discharge ED - Sign-Out/Discharge Documenting (check all that apply): Patient Departure - Discharge Plan Condition: Stable Disposition: HOME Prescriptions: LORazepam TAB(*) [Ativan 1 MG TAB (*)] 1 mg PO Q8H PRN #3 tab MDD 3 PRN Reason: Anxiety Patient Education Materials: Alcohol Withdrawal (ED), Hematemesis (ED) Referrals: No Primary Care Phys,NOPCP [Primary Care Provider] - Additional Instructions: Ativan up to three times daily if needed for any alcohol withdrawal symptoms This may be dispensed you by someone up to three times a day Do not drink alcohol while taking this medication! - Billing Disposition and Condition Condition: STABLE Disposition: Home
[2019-04-29 11:05] LABS: Alcohol 329 mg/dL (<10)
[2019-04-29 12:55] VITALS: BP 112/64
== END 2019-04-29 12:54 | disposition home or self-care (01) ==
LOC: ED 09:23
DX: K92.0 Hematemesis (principal); F10.129 Alcohol abuse with intoxication, unspecified; F41.9 Anxiety disorder, unspecified; F32.9 Major depressive disorder, single episode, unspecified; Z87.891 Personal history of nicotine dependence
CPT/HCPCS: 36415; 80053; 80320; 81003; 83605; 83690; 85025; 85610; 86140; 96365; 96366; 96375; 99282; G0480; J2405; J3411

== ENCOUNTER 2024-02-06 17:06 | Observation (INO) ==
[2024-02-06 20:04] LABS: ABS Monocytes 0.9 10^3/uL (0.0-1.1); ABS Neutrophils 7.7 10^3/uL (1.5-7.6); Hematocrit 41.7 % (38-53); Hemoglobin 14.5 g/dL (13.2-16.3); Lymphocyte % 10.3 %; Mean Corpuscular Hemoglobin 30.4 pg (27-33); Mean Corpuscular Hgb Conc 34.8 g/dL (31-36); Mean Corpuscular Volume 87.4 fL (80-97); Mean Platelet Volume 8.7 fL (7.5-11.2); Platelet Count 106 10^3/uL (150-450); Red Blood Count 4.77 10^6/uL (4.06-5.63); Red Cell Distribution Width 13.7 % (12-17); White Blood Count 9.6 10^3/uL (3.6-10.2)
[2024-02-06 20:42] LABS: Alcohol, S < 13 mg/dL (<13); Anion Gap 10 mmol/L (2-16); Blood Urea Nitrogen 18 mg/dL (6-24); CO2 Carbon Dioxide 27 mmol/L (22-32); Calcium 9.3 mg/dL (8.6-10.3); Chloride 89 mmol/L (101-111); Creatinine, Serum 0.73 mg/dL (0.67-1.17); Glucose 149 mg/dL (70-100); Potassium 3.5 mmol/L (3.5-5.0); Sodium 126 mmol/L (135-145); eGFR CKD-EPI 104.2 (>60)
[2024-02-06 20:45] LABS: ALT 490 U/L (7-52); AST 321 U/L (13-39); Albumin/Globulin Ratio 1.6 (1-3); Alkaline Phosphatase 84 U/L (35-149); Globulin 2.5 g/dL (2-4); Magnesium 1.5 mg/dL (1.9-2.7); Total Protein 6.5 g/dL (6.4-8.9)
[2024-02-06] MEDS: Thiamine 100 MG/ML 2 ml VIAL (200 mg) IM ONE (21:36)
[2024-02-06 22:13] LABS: High Sensitivity Troponin 1 Hr 107 pg/mL (<20)
[2024-02-07] MEDS: LORazepam 2 mg VIAL 1 ml IV PUSH SCH (00:41)
[2024-02-07] MEDS ORDERED: Ondansetron 4 mg VIAL 2 MG/ML 2 ml VIAL IV PRN (02:03)
[2024-02-07] MEDS: Enoxaparin 40 MG/0.4 ML SYR SUBCUT SCH (02:39)
[2024-02-07] MEDS: Lactated Ringers 1000 ml BAG 1,000 ML IV ONE (05:19)
[2024-02-07] MEDS: Magnesium Sulfate 2 gm BAG 2 GM/50 ML BAG IVPB ONE (05:20)
[2024-02-07 07:45] LABS: Calcium 8.9 mg/dL (8.6-10.3); Creatinine, Serum 0.96 mg/dL (0.67-1.17); Potassium 3.2 mmol/L (3.5-5.0); eGFR CKD-EPI 90.5 (>60)
[2024-02-07] MEDS: Multivitamins/Minerals TAB PO SCH (08:44)
[2024-02-07] MEDS: Potassium Chlor 20 meq TAB.ER PO ONE (17:07)
[2024-02-07 17:08] LABS: Magnesium 2.8 mg/dL (1.9-2.7)
[2024-02-08 07:06] LABS: Calcium 8.6 mg/dL (8.6-10.3); Creatinine, Serum 0.92 mg/dL (0.67-1.17); Potassium 3.5 mmol/L (3.5-5.0); eGFR CKD-EPI 95.2 (>60)
[2024-02-08 14:15] VITALS: BP 119/80
== END 2024-02-08 17:30 | disposition home or self-care (01) ==
LOC: ED 17:06 → EDHOLD 02-07 00:29 → SUATTDRO 02-07 00:29 → INTOOBSV 02-07 00:29 → MED 02-07 13:05
PROVIDERS: ADMIT Internal Medicine; ATTEND Internal Medicine